=== PATIENT | female | born 1945 | race Caucasian/White ===

== ENCOUNTER 2017-05-16 09:22 | Inpatient (IN) | payer MEDICARE, OTHER ==
[~2017-05-16 09:22] MED LIST: Lactated Ringers 1,000 ML IV SCH; Lidocaine 1%/Sod Bicarbonate in NS 8.4% 1 ML Syringe PRN; Sodium Chloride 0.9% 10 ML Syringe FLUSH PRN
--- NOTE | 2017-05-16 11:08 | PCM.PREANE ---
Preanesthetic Assessment - Anesthesia/Transfusion/Family Hx Anesthesia History: Prior Anesthesia Without Reaction Family History of Anesthesia Reaction: No Transfusion History: No Prior Transfusion(s) Intubation History: Unknown - Review of Systems General: No Symptoms Pulmonary: Cough (dry cough on occasion) Cardiovascular: No Symptoms (History of HTN), Palpitations (on occasion) Gastrointestinal: No Symptoms (History of GERD) Neurological: No Symptoms (History of lower back pain/ currently asymptomatic, history of sciatica in the past.) Other: Reports: Thyroid Problems (Hypothyroid) - Physical Assessment NPO Status Date: 05/15/17 NPO Status Time: 21:00 Pulse: 88 O2 Sat by Pulse Oximetry: 98 Respiratory Rate: 16 Blood Pressure: 149/80 Temperature: 37.0 C Height: 1.75 m Weight: 74 kg ASA Class: 2 Mental Status: Alert & Oriented x3 Airway Class: Mallampati = 2 Dentition: Reports: Normal Dentition, Caries Thyro-Mental Finger Breadths: 3 Mouth Opening Finger Breadths: 3 ROM/Head Extension: Full Lungs: Clear to Auscultation, Normal Respiratory Effort Cardiovascular: Regular Rate, Regular Rhythm, No Murmurs - Lab Values: MRSA= negative Platelets= 320,000 All other lab values reviewed and noted and within acceptable ranges to proceed with scheduled procedure. - Imaging/EKG Impressions: Negative CXR noted. EKG: NSR with borderline left axis deviation, PVC's. - Allergies Allergies/Adverse Reactions: Allergies Allergy/AdvReac Type Severity Reaction Status Date / Time moxifloxacin [From Avelox] Allergy Cannot Verified 05/13/17 14:15 Remember - Anesthesia Plan Pre-Op Medication Ordered: None - Acknowledgements Anesthesia Type Planned: General Anesthesia, Spinal (with MAC) Pt an Appropriate Candidate for the Planned Anesthesia: Yes Alternatives and Risks of Anesthesia Discussed w Pt/Guardian: Yes Pt/Guardian Understands and Agrees with Anesthesia Plan: Yes PreAnesthesia Questionnaire HEENT History: Reports: Impaired Vision Cardiovascular History: Reports: High Cholesterol, Hypertension Respiratory History: Reports: None Gastrointestinal History: Reports: GERD Genitourinary History: Reports: None 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 Musculoskeletal History: Reports: Back Pain, Chronic, Osteoarthritis, Other ( See Below) Other Musculoskeletal History: low back pain Neurological History: Reports: None Psychiatric History: Reports: None Endocrine/Metabolic History: Reports: Hypothyroidism Hematologic History: Reports: None Immunologic History: Reports: None Oncologic (Cancer) History: Reports: None Dermatologic History: Reports: Other (See Below) Other Dermatologic History: actinic keratosis, R hand skin biopsy, neuroma exicsion of hand - Past Surgical History Head Surgeries/Procedures: Reports: None HEENT Surgical History: Reports: Tonsillectomy Cardiovascular Surgical History: Reports: None Respiratory Surgical History: Reports: None GI Surgical History: Reports: Colonoscopy, EGD Female Surgical History: Reports: Hysterectomy Male Surgical History: Reports: None Endocrine Surgical History: Reports: None Neurological Surgical History: Reports: None Musculoskeletal Surgical History: Reports: None Oncologic Surgical History: Reports: None - SUBSTANCE USE Smoking Status *Q: Never Smoker Recreational Drug Use History: No - HOME MEDS Home Medications: Home Meds Albuterol [Ventolin HFA] 1 - 2 puff INH Q4H PRN 05/13/17 [History] Calcium Citrate/Vitamin D3 [Citracal + D Maximum Caplet] 1 tab PO DAILY [History] Cholecalciferol (Vitamin D3) [Vitamin D3] 5,000 unit PO DAILY 05/13/17 [History] Hydrochlorothiazide [Hydrochlorothiazide] 12.5 mg PO DAILY 05/13/17 [History] Ibuprofen 200 - 600 mg PO Q6H 05/13/17 [History] Multivits-Min/Iron/FA/Lutein [Centrum Silver Women Tablet] 1 tab PO DAILY [History] Omeprazole Magnesium [Prilosec Otc] 20 mg PO BID 05/13/17 [History] - CURRENT (IN HOUSE) MEDS Current Meds: Current Medications Morphine Sulfate 8 mg/Epinephrine HCl 0.3 mg/Cefuroxime Sodium 750 mg/Ketorolac Tromethamine 30 mg/Sodium Chloride 27.9 ml 0 mg .XX ONETIME ONE Stop: 05/16/17 12:01 Lactated Ringer's (Ringers, Lactated) 1,000 mls @ 125 mls/hr IV ASDIRECTED TREY Stop: 05/16/17 23:00 Lidocaine/Sodium Bicarbonate (Buffered Lidocaine 1% In Ns 8.4%) 0.25 ml .XX ONETIME PRN PRN Reason: Prior to IV Start Stop: 05/16/17 18:00 Sodium Chloride (Saline Flush) 10 ml FLUSH ASDIRECTED PRN PRN Reason: Keep Vein Open Stop: 05/16/17 18:00
[2017-05-16] MEDS ORDERED: FLU Vacc TS 2017-18 (65yr UP)/PF 180 MCG/0.5 ML Syringe IM ONE (11:30)
[2017-05-16] MEDS ORDERED: Propofol 200 MG/20 ML SDV ONE ×3 (11:47→13:45)
[2017-05-16] MEDS ORDERED: Lidocaine 1% 4 ML ONE (11:47)
[2017-05-16] MEDS ORDERED: Midazolam 1 MG/ML 2 ML SDV ONE (11:48)
[2017-05-16] MEDS ORDERED: fentaNYL 100 MCG/2 ML SDV ONE (11:48)
[2017-05-16] MEDS ORDERED: ceFAZolin 1 GM Vial ONE (11:51)
[2017-05-16] MEDS ORDERED: Morphine PF 10 MG/10 ML SDV ONE (12:05)
[2017-05-16] MEDS ORDERED: Cyclobenzaprine 10 MG Tab PO PRN (12:13)
[2017-05-16] MEDS ORDERED: Magnesium Hydroxide 400 MG/5 ML Susp 30 ML Cup PO PRN (12:13)
[2017-05-16] MEDS ORDERED: Naloxone 0.4 MG/ML SDV IVPUSH PRN (12:13)
[2017-05-16] MEDS ORDERED: Morphine 2 MG/ML Syringe IVPUSH PRN (12:13)
[2017-05-16] MEDS ORDERED: Bisacodyl 5 MG Tab PO PRN (12:13)
[2017-05-16] MEDS ORDERED: Sennosides 8.6 MG Tab PO PRN (12:13)
[2017-05-16] MEDS ORDERED: Ondansetron 4 MG/2 ML SDV IVPUSH PRN ×2 (12:13→12:36)
[2017-05-16] MEDS ORDERED: Ondansetron 4 MG/2 ML SDV ONE (12:27)
[2017-05-16] MEDS ORDERED: diphenhydrAMINE 50 MG/ML SDV IVPUSH PRN (12:36)
[2017-05-16] MEDS: Iodine/Sodium Iodide 2% Tincture 30 ML Bottle ONE ×2 (12:52→13:05)
[2017-05-16] MEDS: Bupivacaine 0.25% 30 ML SDV ONE ×4 (12:53→13:40)
[2017-05-16] MEDS: ceFAZolin 1 GM Vial ONE ×2 (12:53→13:08)
[2017-05-16] MEDS: Triamcinolone Acetonide 40 MG/ML 1 ML MDV ONE ×2 (12:54→13:40)
[2017-05-16] MEDS: Vancomycin 1 GM SDV ONE ×2 (12:54→13:15)
[2017-05-16] MEDS: Morphine 8 MG, EPINEPHrine 0.3 MG, Cefuroxime 750 MG, Ketorolac 30 MG, Sodium Chloride ... ONE ×10 (12:56→13:13)
[2017-05-16] MEDS ORDERED: Dexamethasone 4 MG/ML 5 ML MDV ONE (13:47)
--- NOTE | 2017-05-16 13:57 | PCM.POSTAN ---
POST ANESTHESIA ASSESSMENT - MENTAL STATUS Mental Status: Alert, Oriented - VITAL SIGNS Pulse Rate: 91 SaO2: 98 Resp Rate: 15 Blood Pressure: 113/66 Temperature: 37.0 C - RESPIRATORY Respiratory Status: Respiratory Rate WNL, Airway Patent, O2 Saturation Stable - CARDIOVASCULAR CV Status: Pulse Rate WNL, Blood Pressure Stable - GASTROINTESTINAL GI Status: No Symptoms - PAIN Pain Score: 0 - POST OP HYDRATION Hydration Status: Adequate & Stable
[2017-05-16] MEDS ORDERED: Lactated Ringers 1,000 ML ONE (14:01)
[2017-05-16] MEDS ORDERED: Ketorolac 30 MG/ML SDV ONE (14:20)
--- NOTE | 2017-05-16 14:33 | CR ---
Right knee: AP and lateral views of the right knee were obtained. Comparison: Previous standing AP knee exam of 12/22/16. Knee prosthesis is seen. Components are aligned. Underlying bony structures are intact. Air noted within the joint as well as fluid compatible with the surgical procedure. Underlying bony structures are intact. Impression: 1. Fluid and air within the joint which is compatible with recent surgery. 2. No acute abnormality is seen. Diagnostic code #2
--- NOTE | 2017-05-16 14:56 | PCM.CONS ---
H&P History of Present Illness - General Date of Service: 05/16/17 Admit Problem/Dx: Admission Diagnosis/Problem Admission Diagnosis/Problem Osteoarthritis of knee Source of Information: Patient, Old Records, Provider, RN History Limitations: Reports: No Limitations - History of Present Illness Initial Comments - Free Text/Narative: Minna Gonzalez is a 71 yo female s/p right TKA and left knee cortisone injection with Dr. Marcus this morning. Hospitalist service is consulted for postoperative medical management. PMH includes hypothyroidism, HTN, GERD, HLD, Chronic back pain, Osteoarthritis. Thus far postoperatively she is resting comfortably, under good pain control. No nausea. No SOB, CP, palpiataitons. Right Knee Pain Score (Numeric/FACES): 0 - Related Data Allergies/Adverse Reactions: Allergies Allergy/AdvReac Type Severity Reaction Status Date / Time moxifloxacin [From Avelox] Allergy Cannot Verified 05/16/17 16:03 Remember Home Medications: Home Meds Albuterol [Ventolin HFA] 1 - 2 puff INH Q4H PRN 05/13/17 [History] Calcium Citrate/Vitamin D3 [Citracal + D Maximum Caplet] 1 tab PO DAILY [History] Cholecalciferol (Vitamin D3) [Vitamin D3] 2,000 unit PO DAILY 05/13/17 [History] Hydrochlorothiazide [Hydrochlorothiazide] 12.5 mg PO DAILY 05/13/17 [History] Ibuprofen 200 - 600 mg PO Q6H 05/13/17 [History] Multivits-Min/Iron/FA/Lutein [Centrum Silver Women Tablet] 1 tab PO DAILY [History] Omeprazole Magnesium [Prilosec Otc] 20 mg PO BID 05/13/17 [History] Levothyroxine 75 mcg PO ACBREAKFAST 05/16/17 [History] Pravastatin Sodium [Pravastatin (Pravachol)] 40 mg PO BEDTIME 05/16/17 [History] Past Medical History HEENT History: Reports: Impaired Vision Cardiovascular History: Reports: High Cholesterol, Hypertension Respiratory History: Reports: None Gastrointestinal History: Reports: GERD Genitourinary History: Reports: None 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 Musculoskeletal History: Reports: Back Pain, Chronic, Osteoarthritis, Other ( See Below) Other Musculoskeletal History: low back pain Neurological History: Reports: None Psychiatric History: Reports: None Endocrine/Metabolic History: Reports: Hypothyroidism Hematologic History: Reports: None Immunologic History: Reports: None Oncologic (Cancer) History: Reports: None Dermatologic History: Reports: Other (See Below) Other Dermatologic History: actinic keratosis, R hand skin biopsy, neuroma exicsion of hand - Past Surgical History Head Surgeries/Procedures: Reports: None HEENT Surgical History: Reports: Tonsillectomy Cardiovascular Surgical History: Reports: None Respiratory Surgical History: Reports: None GI Surgical History: Reports: Colonoscopy, EGD Female Surgical History: Reports: Hysterectomy Male Surgical History: Reports: None Endocrine Surgical History: Reports: None Neurological Surgical History: Reports: None Musculoskeletal Surgical History: Reports: None Oncologic Surgical History: Reports: None Social & Family History - Tobacco Use Smoking Status *Q: Never Smoker - Caffeine Use Caffeine Use: Reports: Coffee, Tea - Recreational Drug Use Recreational Drug Use: No H&P Review of Systems - Review of Systems: Review Of Systems: See Below General: Reports: No Symptoms HEENT: Reports: No Symptoms Pulmonary: Reports: No Symptoms Cardiovascular: Reports: No Symptoms Gastrointestinal: Reports: No Symptoms Genitourinary: Reports: No Symptoms Musculoskeletal: Reports: Muscle Stiffness (right leg ). Denies: Joint Pain, Joint Swelling, Muscle Pain Skin: Reports: No Symptoms Psychiatric: Reports: No Symptoms Neurological: Reports: Numbness (mild - right leg ), Difficulty Walking, Gait Disturbance. Denies: Confusion, Dizziness, Headache Hematologic/Lymphatic: Reports: No Symptoms Immunologic: Reports: No Symptoms Exam - Exam Exam: See Below - Vital Signs Vital Signs: Last Vital Signs Temp 98.1 F 05/16/17 14:35 Pulse 91 05/16/17 13:57 Resp 16 05/16/17 14:50 BP 119/65 05/16/17 14:35 Pulse Ox 97 05/16/17 14:50 Weight: 163 lb 2.273 oz - Exam Quality Assessment: Supplemental Oxygen, Urinary Catheter, DVT Prophylaxis General: Alert, Oriented, Cooperative HEENT: Conjunctiva Clear, EACs Clear, Hearing Intact, Mucosa Moist & [place], Nares Patent, Normal Nasal Septum, Posterior Pharynx Clear, TMs Clear, PERRLA Neck: Supple, Trachea Midline. No: JVD Lungs: Clear to Auscultation, Normal Respiratory Effort Cardiovascular: Regular Rate, Regular Rhythm GI/Abdominal Exam: Normal Bowel Sounds, Soft, Non-Tender, No Organomegaly, No Distention, No Abnormal Bruit, No Mass, Pelvis Stable (Female) Exam: Deferred Rectal (Female) Exam: Deferred Back Exam: Normal Inspection, Full Range of Motion, NT Extremities: Non-Tender, No Pedal Edema, Normal Capillary Refill, Limited Range of Motion, Other (Right knee in GREGORY bandage. Dressing dry and intact ) Peripheral Pulses: 0: Posterior Tibial (R) (Unable to palpate due to bandage ), Dorsalis Pedis (R) (Unable to palpate due to bandage ), 2+: Radial (L), Radial ( R), Posterior Tibial (L), Dorsalis Pedis (L) Skin: Warm, Dry, Intact Neurological: Cranial Nerves Intact (Grossly ) Neuro Extensive - Mental Status: Alert, Oriented x3, Normal Mood/Affect, Normal Cognition, Memory Intact Neuro Extensive - Motor, Sensory, Reflexes: CN II-XII Intact (Grossly ) Psychiatric: Alert, Normal Affect, Normal Mood Consult PN Assessment/Plan POD#: 0 Procedures: Procedures BONE IMAGING WHOLE BODY (02/28/17) MRI JNT OF LWR EXTRE W/O DYE (12/09/16) MRI LUMBAR SPINE W/O DYE (02/28/17) OFFICE/OUTPATIENT VISIT EST (12/22/16) X-RAY EXAM OF KNEE 1 OR 2 (12/22/16) X-RAY EXAM OF KNEES (12/22/16) (1) Hyperlipidemia SNOMED Code(s): 14710412 Code(s): E78.5 - HYPERLIPIDEMIA, UNSPECIFIED Priority: Low Current Visit : No Qualifiers: Hyperlipidemia type: unspecified Qualified Code(s): E78.5 - Hyperlipidemia , unspecified (2) Hypertension SNOMED Code(s): 03614340 Code(s): I10 - ESSENTIAL (PRIMARY) HYPERTENSION Priority: Medium Current Visit: Yes Qualifiers: Hypertension type: unspecified Qualified Code(s): I10 - Essential (primary ) hypertension (3) Hypothyroidism SNOMED Code(s): 99197111 Code(s): E03.9 - HYPOTHYROIDISM, UNSPECIFIED Priority: Medium Current Visit: Yes Qualifiers: Hypothyroidism type: unspecified Qualified Code(s): E03.9 - Hypothyroidism , unspecified (4) Osteoarthritis SNOMED Code(s): 822712089 Code(s): M19.90 - UNSPECIFIED OSTEOARTHRITIS, UNSPECIFIED SITE Priority: High Current Visit: Yes Qualifiers: Osteoarthritis location: knee Osteoarthritis type: primary Laterality: bilateral Qualified Code(s): M17.0 - Bilateral primary osteoarthritis of knee (5) Status post right knee replacement SNOMED Code(s): 828058125, 468870551 Code(s): Z96.651 - PRESENCE OF RIGHT ARTIFICIAL KNEE JOINT Priority: High Current Visit: Yes Problem List Initiated/Reviewed/Updated: Yes Plan: Acute: Post-Operative Care State - She is clinically stable - Continue to monitor for hemodynamic instability S/p Right Total Knee Arthroplasty with Left knee cortisone injection - Stable - DVT and Pain Management as per primary team Hx/o bilateral Knee Pain - Pain Management as per primary team Hx/o chronic back pain - Pain management as per primary team Hx/o HTN - Controlled - Last BP was 120/98 mmHg - PRN anti-hypertensive drug and continue home meds. Chronic: HLD GERD Hypothyroidism Osteoarthritis Plan: She is clinically stable Routine AM labs Continue home meds PT/OT consult IS q2 awake Thank you for the opportunity to participate in the management of this patient. Requesting Provider: Dr. Marcus Date Consult Requested: 05/16/17 Reason for Consult: Post-operative care Patient History Reviewed: Yes Admission H&P Reviewed: Yes Consult Result/Summary:: Clinically stable
[2017-05-16] MEDS ORDERED: Albuterol 6.7 GM Inhaler INH PRN (16:05)
[2017-05-16] MEDS: Docusate Sodium 100 MG Cap PO SCH (22:01)
[2017-05-16] MEDS: Famotidine 20 MG Tab PO SCH (22:01)
[2017-05-16] MEDS: ceFAZolin 2 GM in Premix Bag 1 BAG IV SCH (22:01)
[2017-05-16] MEDS: Acetaminophen/oxyCODONE 325-5 MG Tab PO PRN (22:06)
[2017-05-17] MEDS: ceFAZolin 2 GM in Premix Bag 1 BAG IV SCH ×2 (03:05→11:18)
[2017-05-17] MEDS: Famotidine 20 MG Tab PO SCH ×2 (05:56→09:15)
[2017-05-17] MEDS: Acetaminophen/oxyCODONE 325-5 MG Tab PO PRN ×2 (05:56→13:04)
[2017-05-17] MEDS ORDERED: Levothyroxine 75 MCG Tab PO SCH (06:00)
--- NOTE | 2017-05-17 08:50 | PCM.CONSN ---
- General Info Date of Service: 05/17/17 Admission Dx/Problem (Free Text): Admission Diagnosis/Problem Admission Diagnosis/Problem Osteoarthritis of knee POD #[address] Marcus Doing well. Pain controlled. No n/v Working with PT Plans for DC home today. Functional Status: Reports: Pain Controlled, Tolerating Diet, Ambulating, Urinating, Incentive Spirometry. Denies: New Symptoms - Review of Systems General: Reports: No Symptoms HEENT: Reports: No Symptoms Pulmonary: Reports: No Symptoms Cardiovascular: Reports: No Symptoms Gastrointestinal: Reports: No Symptoms Genitourinary: Reports: No Symptoms Musculoskeletal: Reports: Leg Pain Skin: Reports: No Symptoms Neurological: Reports: No Symptoms Psychiatric: Reports: No Symptoms - Patient Data Vitals - Most Recent: Last Vital Signs Temp 97.5 F 05/17/17 07:33 Pulse 62 05/17/17 07:33 Resp 19 05/17/17 07:33 BP 108/70 05/17/17 07:33 Pulse Ox 96 05/17/17 07:33 Weight - Most Recent: 171 lb I&O - Last 24 Hours: Intake & Output 05/16/17 05/17/17 05/17/17 22:59 06:59 14:59 Intake Total 240 837 Output Total 400 350 Balance -160 487 Lab Results Last 24 Hours: Laboratory Results - last 24 hr 05/17/17 05/17/17 Range/Units 06:05 06:05 WBC 18.95 H (3.98-10.04) K/mm3 RBC 4.21 (3.98-5.22) M/mm3 Hgb 12.5 (11.2-15.7) gm/L Hct 37.0 (34.1-44.9) % MCV 87.9 (79.4-94.8) fl MCH 29.7 (25.6-32.2) pg MCHC 33.8 (32.2-35.5) g/dl RDW Std Deviation 42.0 (36.4-46.3) fL Plt Count 302 (182-369) K/mm3 MPV 10.7 (9.4-12.3) fl Neut % (Auto) 87.4 H (34.0-71.1) % Lymph % (Auto) 6.7 L (19.3-51.7) % [place] % (Auto) 5.5 (4.7-12.5) % Eos % (Auto) 0 L (0.7-5.8) Baso % (Auto) 0.1 (0.1-1.2) % Neut # (Auto) 16.58 H (1.56-6.13) K/mm3 Lymph # (Auto) 1.27 (1.18-3.74) K/mm3 [place] # (Auto) 1.04 H (0.24-0.36) K/mm3 Eos # (Auto) 0.00 L (0.04-0.36) K/mm3 Baso # (Auto) 0.01 (0.01-0.08) K/mm3 Manual Slide Review Abnormal smear Sodium 139 (136-145) mEq/L Potassium 4.1 (3.5-5.1) mEq/L Chloride 104 (98-107) mEq/L Carbon Dioxide 25 (21-32) mEq/L Anion Gap 14.1 (5-15) BUN 20 H (7-18) mg/dL Creatinine 1.0 (0.55-1.02) mg/dL Est Cr Clr Drug Dosing 54.71 mL/min Estimated GFR (MDRD) 55 (>60) mL/min BUN/Creatinine Ratio 20.0 H (14-18) Glucose 140 H (80-115) mg/dL Calcium 9.0 (8.5-10.1) mg/dL Total Bilirubin 0.3 (0.2-1.0) mg/dL AST 17 (15-37) U/L ALT 27 (14-59) U/L Alkaline Phosphatase 110 (46-116) U/L Total Protein 6.2 L (6.4-8.2) g/dl Albumin 3.2 L (3.4-5.0) g/dl Globulin 3.0 gm/dL Albumin/Globulin Ratio 1.1 (1-2) Med Orders - Current: Current Medications Albuterol (Proventil Hfa) 1 - 2 gm INH Q4H PRN PRN Reason: Shortness of Breath Aspirin (Ecotrin) 325 mg PO BID TREY Bisacodyl (Dulcolax) 5 mg PO DAILY PRN PRN Reason: Constipation Cyclobenzaprine HCl (Flexeril) 10 mg PO TID PRN PRN Reason: Spasms Diphenhydramine HCl (Benadryl) 25 mg IVPUSH Q6H PRN PRN Reason: Pruritis Docusate Sodium (Colace) 100 mg PO BID [facility] Last Admin: 05/16/17 22:01 Dose: 100 mg Famotidine (Pepcid) 20 mg PO BID [facility] Last Admin: 05/17/17 05:56 Dose: 20 mg Hydrochlorothiazide (Hydrochlorothiazide) 12.5 mg PO DAILY [facility] Cefazolin Sodium/Dextrose 2 gm (/ Premix) 50 mls @ 100 mls/hr IV Q8H [facility] Stop: 05/17/17 12:29 Last Admin: 05/17/17 03:05 Dose: 100 mls/hr Levothyroxine Sodium (Levothyroxine) 75 mcg PO ACBREAKFAST [facility] Last Admin: 05/17/17 05:55 Dose: 75 mcg Magnesium Hydroxide (Milk Of Magnesia) 30 ml PO BID PRN PRN Reason: Constipation Morphine Sulfate (Morphine) 2 mg IVPUSH Q2H PRN PRN Reason: Breakthrough Pain Naloxone HCl (Narcan) 0.1 mg IVPUSH Q5M PRN PRN Reason: Oversedation Ondansetron HCl (Zofran) 4 mg IVPUSH Q6H PRN PRN Reason: Nausea/Vomiting Oxycodone/Acetaminophen (Percocet 325-5 Mg) 1 - 2 tab PO Q4H PRN PRN Reason: Pain Last Admin: 05/17/17 05:56 Dose: 2 tab Senna (Senna) 8.6 mg PO BID PRN PRN Reason: Constipation Discontinued Medications Bupivacaine HCl (Marcaine 0.25%) Confirm Administered Dose 30 ml .ROUTE .STK- MED ONE Stop: 05/16/17 11:01 Last Admin: 05/16/17 13:40 Dose: 4 ml Cefazolin Sodium (Ancef) Confirm Administered Dose 2 gm .ROUTE .STK-MED ONE Stop: 05/16/17 11:01 Last Admin: 05/16/17 13:08 Dose: 2 gm Cefazolin Sodium (Ancef) Confirm Administered Dose 2 gm .ROUTE .STK-MED ONE Stop: 05/16/17 11:52 Morphine Sulfate 8 mg/Epinephrine HCl 0.3 mg/Cefuroxime Sodium 750 mg/Ketorolac Tromethamine 30 mg/Sodium Chloride 27.9 ml 0 mg .XX ONETIME ONE Stop: 05/16/17 12:01 Last Admin: 05/16/17 13:13 Dose: 788.3 mg Dexamethasone (Dexamethasone) Confirm Administered Dose 20 mg .ROUTE .STK-MED ONE Stop: 05/16/17 13:48 Fentanyl (Sublimaze) Confirm Administered Dose 100 mcg .ROUTE .STK-MED ONE Stop: 05/16/17 11:49 Lactated Ringer's (Ringers, Lactated) 1,000 mls @ 125 mls/hr IV ASDIRECTED TREY Stop: 05/16/17 23:00 Last Admin: 05/16/17 11:10 Dose: 125 mls/hr Lidocaine HCl (Xylocaine-Mpf 1%) Confirm Administered Dose 4 mls @ as directed .ROUTE .STK-MED ONE Stop: 05/16/17 11:48 Lactated Ringer's (Ringers, Lactated) Confirm Administered Dose 1,000 mls @ as directed .ROUTE .STK-MED ONE Stop: 05/16/17 14:02 Iodine (Iodine 2% Mild Tincture) Confirm Administered Dose 30 ml .ROUTE .STK- MED ONE Stop: 05/16/17 11:01 Last Admin: 05/16/17 13:05 Dose: 18 ml Ketorolac Tromethamine (Toradol) Confirm Administered Dose 30 mg .ROUTE .STK- MED ONE Stop: 05/16/17 14:21 Lidocaine/Sodium Bicarbonate (Buffered Lidocaine 1% In Ns 8.4%) 0.25 ml .XX ONETIME PRN PRN Reason: Prior to IV Start Stop: 05/16/17 18:00 Last Admin: 05/16/17 11:09 Dose: 0.25 ml Midazolam HCl (Versed 1 Mg/Ml) Confirm Administered Dose 2 mg .ROUTE .STK-MED ONE Stop: 05/16/17 11:49 Morphine Sulfate (Duramorph Pf) Confirm Administered Dose 10 mg .ROUTE .STK-MED ONE Stop: 05/16/17 12:06 Ondansetron HCl (Zofran) Confirm Administered Dose 4 mg .ROUTE .STK-MED ONE Stop: 05/16/17 12:28 Ondansetron HCl (Zofran) 4 mg IVPUSH ONETIME PRN PRN Reason: Nausea/Vomiting Stop: 05/16/17 18:00 Propofol (Diprivan 20 Ml) Confirm Administered Dose 400 mg .ROUTE .STK-MED ONE Stop: 05/16/17 11:48 Propofol (Diprivan 20 Ml) Confirm Administered Dose 200 mg .ROUTE .STK-MED ONE Stop: 05/16/17 12:58 Propofol (Diprivan 20 Ml) Confirm Administered Dose 200 mg .ROUTE .STK-MED ONE Stop: 05/16/17 13:46 Sodium Chloride (Saline Flush) 10 ml FLUSH ASDIRECTED PRN PRN Reason: Keep Vein Open Stop: 05/16/17 18:00 Tranexamic Acid (Cyklokapron) Confirm Administered Dose 1,000 mg .ROUTE .STK- MED ONE Stop: 05/16/17 11:00 Last Admin: 05/16/17 13:24 Dose: 1,000 mg Triamcinolone Acetonide (Kenalog-40) Confirm Administered Dose 40 mg .ROUTE .STK -MED ONE Stop: 05/16/17 11:01 Last Admin: 05/16/17 13:40 Dose: 40 mg Vancomycin HCl (Vancomycin) Confirm Administered Dose 1 gm .ROUTE .STK-MED ONE Stop: 05/16/17 11:00 Last Admin: 05/16/17 13:15 Dose: 1 gm - Exam Quality Assessment: DVT Prophylaxis General: Alert, Oriented, Cooperative, No Acute Distress HEENT: Pupils Equal, EOMI, Mucous Membr. Moist/[place] Neck: Supple Lungs: Clear to Auscultation, Normal Respiratory Effort, Decreased Breath Sounds (bases) Cardiovascular: Regular Rate, Regular Rhythm GI/Abdominal Exam: Normal Bowel Sounds, Soft, Non-Tender (Female) Exam: Deferred Extremities: Other (teds/SCD's/Ice) Peripheral Pulses: 1+: Dorsalis Pedis (L), Dorsalis Pedis (R) Neurological: No New Focal Deficit Psy/Mental Status: Alert, Normal Affect, Normal Mood Consult PN Assessment/Plan POD#: 1 Procedures: Procedures BONE IMAGING WHOLE BODY (02/28/17) MRI JNT OF LWR EXTRE W/O DYE (12/09/16) MRI LUMBAR SPINE W/O DYE (02/28/17) OFFICE/OUTPATIENT VISIT EST (12/22/16) X-RAY EXAM OF KNEE 1 OR 2 (12/22/16) X-RAY EXAM OF KNEES (12/22/16) (1) Status post right knee replacement SNOMED Code(s): 177995107, 153665262 Code(s): Z96.651 - PRESENCE OF RIGHT ARTIFICIAL KNEE JOINT Priority: High Current Visit: Yes (2) Osteoarthritis SNOMED Code(s): 607501143 Code(s): M19.90 - UNSPECIFIED OSTEOARTHRITIS, UNSPECIFIED SITE Priority: High Current Visit: Yes Qualifiers: Osteoarthritis location: knee Osteoarthritis type: primary Laterality: bilateral Qualified Code(s): M17.0 - Bilateral primary osteoarthritis of knee (3) Hypertension SNOMED Code(s): 56837536 Code(s): I10 - ESSENTIAL (PRIMARY) HYPERTENSION Priority: Medium Current Visit: Yes Qualifiers: Hypertension type: unspecified Qualified Code(s): I10 - Essential (primary ) hypertension (4) Hypothyroidism SNOMED Code(s): 81614638 Code(s): E03.9 - HYPOTHYROIDISM, UNSPECIFIED Priority: Medium Current Visit: Yes Qualifiers: Hypothyroidism type: unspecified Qualified Code(s): E03.9 - Hypothyroidism , unspecified (5) Hyperlipidemia SNOMED Code(s): 38765442 Code(s): E78.5 - HYPERLIPIDEMIA, UNSPECIFIED Priority: Low Current Visit : No Qualifiers: Hyperlipidemia type: unspecified Qualified Code(s): E78.5 - Hyperlipidemia , unspecified Problem List Initiated/Reviewed/Updated: Yes Plan: I/P: S/P Rt TKA- POD #1, Dr. Marcus -Pain management and DVT prophylax per primary team/Ortho -PT/OT -RT/IS -Hgb 12.5 Chronic: HTN- stable HLD GERD Hypothyroidism Chronic LBP Other: GI prophylax CM/SW for assist with DC planning. -Medically stable. Labs and VSS. OK from Hospitalist standpoint for DC home today. Patient is full code status.
[2017-05-17] MEDS ORDERED: Hydrochlorothiazide 12.5 MG Cap PO SCH (09:00)
[2017-05-17] MEDS ORDERED: Aspirin 325 MG Tab.EC PO SCH (09:00)
[2017-05-17] MEDS: Docusate Sodium 100 MG Cap PO SCH (09:11)
--- NOTE | 2017-05-17 10:35 | PCM48HPAN ---
Post Anesthesia Note - EVALUATION WITHIN 48HRS OF ANESTHETIC Vital Signs in Normal Range: Yes Patient Participated in Evaluation: Yes Respiratory Function Stable: Yes Airway Patent: Yes Cardiovascular Function Stable: Yes Hydration Status Stable: Yes Pain Control Satisfactory: Yes Nausea and Vomiting Control Satisfactory: Yes Mental Status Recovered: Yes
[2017-05-17 13:08] VITALS: BP 123/82
--- NOTE | 2017-05-18 07:53 | PCM.DCSUM1 ---
Discharge Summary - Hospital Course Brief History: Minna is a 71 yo female who underwent right TKA with left knee cortisone injection with Dr. Marcus on 05-16-2017. The procedure was completed under spinal anesthesia. The pt tolerated the procedure well and was admitted to the Medical-Surgical Unit. The pt's hospital course was uneventful. The pt' s hemoglobin on POD#1 was 12.5. The pt participated in P.T. and O.T. and progressed well. The pt's surgical dressing remained clean and dry. On POD#1, 325mg ASA BID was initiated for VTE prophylaxis. SCDs and TEDs were also used. On POD#1, the pt was deemed appropriate for discharge to home with her . - Discharge Data Discharge Date: 05/17/17 Discharge Disposition: Home, Self-Care 01 Condition: Good - Patient Summary/Data Consults: Consultations 05/16/17 12:13 Consult to Physician [CONS] Stat OT Evaluation and Treatment [CONS] Stat PT Evaluation and Treatment [CONS] Stat - Patient Instructions Diet: Usual Diet as Tolerated Activity: Apply Ice, As Tolerated, Elevate Extremity, Full Weight Bearing Driving: Do Not Drive Showering/Bathing: May Shower Wound/Incision Care: Keep Operative Site/Wound Site Clean and Dry, Do NOT Change Dressing Notify Provider of: Fever, Increased Pain, Swelling and Redness, Drainage, Nausea and/or Vomiting Other/Special Instructions: Please get up and moving around every hour while awake. This helps to prevent blood clots. Please use your walker and have help as needed. Take a 325mg ASPIRIN TWICE DAILY. This also helps to prevent blood clots. The aspirin is being used for blood clot prevention and not for pain management, so please do not miss a dose of the medication. Do the exercises you were taught in the Hospital. Schedule for P.T. Use the pain medication as needed. The medication may cause drowsiness and constipation. Contact your primary care provider for instructions if you are constipated. You may use a stool softener like docusate sodium or Colace 100mg twice daily and/or a laxative like Miralax daily for constipation. Use the ice machine often. Elevate the limb to decrease swelling. Keep the Mepilex dressing in place until follow-up at the Clinic. Notify the Clinic if the dressing is saturated. Wear the CHUY hose during the day and you may remove these at night. Eat a diet high in protein as this well help with healing. Schedule an appointment with your primary care provider for 'routine post-op care'. Call the Clinic with questions or concerns - [phone]. - Discharge Plan Prescriptions/Med Rec: Acetaminophen/oxyCODONE [Percocet 325-5 MG] 1 - 2 tab PO Q4H PRN #60 tablet PRN Reason: Pain Aspirin [Aspirin EC] 325 mg PO BID #56 tablet. Cyclobenzaprine [Flexeril] 10 mg PO Q8H PRN #40 tablet PRN Reason: Spasms Home Medications: Home Meds Albuterol [Ventolin HFA] 1 - 2 puff INH Q4H PRN 05/13/17 [History] Calcium Citrate/Vitamin D3 [Citracal + D Maximum Caplet] 1 tab PO DAILY [History] Cholecalciferol (Vitamin D3) [Vitamin D3] 2,000 unit PO DAILY 05/13/17 [History] Hydrochlorothiazide 12.5 mg PO DAILY 05/13/17 [History] Multivits-Min/Iron/FA/Lutein [Centrum Silver Women Tablet] 1 tab PO DAILY [History] Omeprazole Magnesium [Prilosec Otc] 20 mg PO BID 05/13/17 [History] Levothyroxine 75 mcg PO ACBREAKFAST 05/16/17 [History] Pravastatin Sodium [Pravastatin (Pravachol)] 40 mg PO BEDTIME 05/16/17 [History] Acetaminophen/oxyCODONE [Percocet 325-5 MG] 1 - 2 tab PO Q4H PRN #60 tablet 10/29 [Rx] Aspirin [Aspirin EC] 325 mg PO BID #56 tablet. 05/17/17 [Rx] Cyclobenzaprine [Flexeril] 10 mg PO Q8H PRN #40 tablet 05/17/17 [Rx] Docusate Sodium [Colace] 100 mg PO BID #60 cap 05/17/17 [Rx] Patient Handouts: Total Knee Replacement, Care After, [id number], Total Knee Replacement, [id number], Aspirin, ASA oral tablets, Knee Rehabilitation Guidelines Following Surgery Referrals: Maegan Jensen PA-C [Physician Public Health Officer] - (Please see Maegan Jensen on Tuesday05/24/17 at 8:00 AM and on Tuesday05/31/17 at 2:45 PM.) Albert Monroe MD [Primary Care Provider] - - Patient Data Vitals - Most Recent: Last Vital Signs Temp 98.4 F 05/17/17 12:59 Pulse 95 05/17/17 12:59 Resp 18 05/17/17 12:59 BP 123/82 05/17/17 12:59 Pulse Ox 99 05/17/17 12:59 Weight - Most Recent: 171 lb Med Orders - Current: Current Medications Discontinued Medications Albuterol (Proventil Hfa) 1 - 2 gm INH Q4H PRN PRN Reason: Shortness of Breath Aspirin (Ecotrin) 325 mg PO BID [facility] Last Admin: 05/17/17 09:11 Dose: 325 mg Bisacodyl (Dulcolax) 5 mg PO DAILY PRN PRN Reason: Constipation Bupivacaine HCl (Marcaine 0.25%) Confirm Administered Dose 30 ml .ROUTE .STK- MED ONE Stop: 05/16/17 11:01 Last Admin: 05/16/17 13:40 Dose: 4 ml Cefazolin Sodium (Ancef) Confirm Administered Dose 2 gm .ROUTE .STK-MED ONE Stop: 05/16/17 11:01 Last Admin: 05/16/17 13:08 Dose: 2 gm Cefazolin Sodium (Ancef) Confirm Administered Dose 2 gm .ROUTE .STK-MED ONE Stop: 05/16/17 11:52 Morphine Sulfate 8 mg/Epinephrine HCl 0.3 mg/Cefuroxime Sodium 750 mg/Ketorolac Tromethamine 30 mg/Sodium Chloride 27.9 ml 0 mg .XX ONETIME ONE Stop: 05/16/17 12:01 Last Admin: 05/16/17 13:13 Dose: 788.3 mg Cyclobenzaprine HCl (Flexeril) 10 mg PO TID PRN PRN Reason: Spasms Dexamethasone (Dexamethasone) Confirm Administered Dose 20 mg .ROUTE .STK-MED ONE Stop: 05/16/17 13:48 Diphenhydramine HCl (Benadryl) 25 mg IVPUSH Q6H PRN PRN Reason: Pruritis Docusate Sodium (Colace) 100 mg PO BID [facility] Last Admin: 05/17/17 09:11 Dose: 100 mg Famotidine (Pepcid) 20 mg PO BID [facility] Last Admin: 05/17/17 09:15 Dose: Not Given Fentanyl (Sublimaze) Confirm Administered Dose 100 mcg .ROUTE .STK-MED ONE Stop: 05/16/17 11:49 Hydrochlorothiazide (Hydrochlorothiazide) 12.5 mg PO DAILY [facility] Last Admin: 05/17/17 09:10 Dose: 12.5 mg Lactated Ringer's (Ringers, Lactated) 1,000 mls @ 125 mls/hr IV ASDIRECTED [facility] Stop: 05/16/17 23:00 Last Admin: 05/16/17 11:10 Dose: 125 mls/hr Lidocaine HCl (Xylocaine-Mpf 1%) Confirm Administered Dose 4 mls @ as directed .ROUTE .STK-MED ONE Stop: 05/16/17 11:48 Cefazolin Sodium/Dextrose 2 gm (/ Premix) 50 mls @ 100 mls/hr IV Q8H [facility] Stop: 05/17/17 12:29 Last Admin: 05/17/17 11:18 Dose: 100 mls/hr Lactated Ringer's (Ringers, Lactated) Confirm Administered Dose 1,000 mls @ as directed .ROUTE .STK-MED ONE Stop: 05/16/17 14:02 Iodine (Iodine 2% Mild Tincture) Confirm Administered Dose 30 ml .ROUTE .STK- MED ONE Stop: 05/16/17 11:01 Last Admin: 05/16/17 13:05 Dose: 18 ml Ketorolac Tromethamine (Toradol) Confirm Administered Dose 30 mg .ROUTE .STK- MED ONE Stop: 05/16/17 14:21 Levothyroxine Sodium (Levothyroxine) 75 mcg PO ACBREAKFAST [facility] Last Admin: 05/17/17 05:55 Dose: 75 mcg Lidocaine/Sodium Bicarbonate (Buffered Lidocaine 1% In Ns 8.4%) 0.25 ml .XX ONETIME PRN PRN Reason: Prior to IV Start Stop: 05/16/17 18:00 Last Admin: 05/16/17 11:09 Dose: 0.25 ml Magnesium Hydroxide (Milk Of Magnesia) 30 ml PO BID PRN PRN Reason: Constipation Midazolam HCl (Versed 1 Mg/Ml) Confirm Administered Dose 2 mg .ROUTE .STK-MED ONE Stop: 05/16/17 11:49 Morphine Sulfate (Duramorph Pf) Confirm Administered Dose 10 mg .ROUTE .STK-MED ONE Stop: 05/16/17 12:06 Morphine Sulfate (Morphine) 2 mg IVPUSH Q2H PRN PRN Reason: Breakthrough Pain Naloxone HCl (Narcan) 0.1 mg IVPUSH Q5M PRN PRN Reason: Oversedation Ondansetron HCl (Zofran) Confirm Administered Dose 4 mg .ROUTE .STK-MED ONE Stop: 05/16/17 12:28 Ondansetron HCl (Zofran) 4 mg IVPUSH Q6H PRN PRN Reason: Nausea/Vomiting Ondansetron HCl (Zofran) 4 mg IVPUSH ONETIME PRN PRN Reason: Nausea/Vomiting Stop: 05/16/17 18:00 Oxycodone/Acetaminophen (Percocet 325-5 Mg) 1 - 2 tab PO Q4H PRN PRN Reason: Pain Last Admin: 05/17/17 13:04 Dose: 2 tab Propofol (Diprivan 20 Ml) Confirm Administered Dose 400 mg .ROUTE .STK-MED ONE Stop: 05/16/17 11:48 Propofol (Diprivan 20 Ml) Confirm Administered Dose 200 mg .ROUTE .STK-MED ONE Stop: 05/16/17 12:58 Propofol (Diprivan 20 Ml) Confirm Administered Dose 200 mg .ROUTE .STK-MED ONE Stop: 05/16/17 13:46 Senna (Senna) 8.6 mg PO BID PRN PRN Reason: Constipation Sodium Chloride (Saline Flush) 10 ml FLUSH ASDIRECTED PRN PRN Reason: Keep Vein Open Stop: 05/16/17 18:00 Tranexamic Acid (Cyklokapron) Confirm Administered Dose 1,000 mg .ROUTE .STK- MED ONE Stop: 05/16/17 11:00 Last Admin: 05/16/17 13:24 Dose: 1,000 mg Triamcinolone Acetonide (Kenalog-40) Confirm Administered Dose 40 mg .ROUTE .STK -MED ONE Stop: 05/16/17 11:01 Last Admin: 05/16/17 13:40 Dose: 40 mg Vancomycin HCl (Vancomycin) Confirm Administered Dose 1 gm .ROUTE .STK-MED ONE Stop: 05/16/17 11:00 Last Admin: 05/16/17 13:15 Dose: 1 gm *Q Meaningful Use (DIS) - VTE *Q VTE Criteria *Q: - Stroke *Q Stroke Criteria *Q: - AMI *Q AMI Criteria *Q:
--- NOTE | 2017-05-18 07:55 | PCM.SURGPN ---
- General Info Date of Service: 05/17/17 POD#: 1 Functional Status: Reports: Pain Controlled, Tolerating Diet, Ambulating, Urinating, Incentive Spirometry - Review of Systems Musculoskeletal: Reports: Other (The pt met inpatient therapy goals. She feels prepared for discharge to home.) - Patient Data Vitals - Most Recent: Last Vital Signs Temp 98.4 F 05/17/17 12:59 Pulse 95 05/17/17 12:59 Resp 18 05/17/17 12:59 BP 123/82 05/17/17 12:59 Pulse Ox 99 05/17/17 12:59 Weight - Most Recent: 171 lb Med Orders - Current: Current Medications Discontinued Medications Albuterol (Proventil Hfa) 1 - 2 gm INH Q4H PRN PRN Reason: Shortness of Breath Aspirin (Ecotrin) 325 mg PO BID [facility] Last Admin: 05/17/17 09:11 Dose: 325 mg Bisacodyl (Dulcolax) 5 mg PO DAILY PRN PRN Reason: Constipation Bupivacaine HCl (Marcaine 0.25%) Confirm Administered Dose 30 ml .ROUTE .STK- MED ONE Stop: 05/16/17 11:01 Last Admin: 05/16/17 13:40 Dose: 4 ml Cefazolin Sodium (Ancef) Confirm Administered Dose 2 gm .ROUTE .STK-MED ONE Stop: 05/16/17 11:01 Last Admin: 05/16/17 13:08 Dose: 2 gm Cefazolin Sodium (Ancef) Confirm Administered Dose 2 gm .ROUTE .STK-MED ONE Stop: 05/16/17 11:52 Morphine Sulfate 8 mg/Epinephrine HCl 0.3 mg/Cefuroxime Sodium 750 mg/Ketorolac Tromethamine 30 mg/Sodium Chloride 27.9 ml 0 mg .XX ONETIME ONE Stop: 05/16/17 12:01 Last Admin: 05/16/17 13:13 Dose: 788.3 mg Cyclobenzaprine HCl (Flexeril) 10 mg PO TID PRN PRN Reason: Spasms Dexamethasone (Dexamethasone) Confirm Administered Dose 20 mg .ROUTE .STK-MED ONE Stop: 05/16/17 13:48 Diphenhydramine HCl (Benadryl) 25 mg IVPUSH Q6H PRN PRN Reason: Pruritis Docusate Sodium (Colace) 100 mg PO BID [facility] Last Admin: 05/17/17 09:11 Dose: 100 mg Famotidine (Pepcid) 20 mg PO BID [facility] Last Admin: 05/17/17 09:15 Dose: Not Given Fentanyl (Sublimaze) Confirm Administered Dose 100 mcg .ROUTE .STK-MED ONE Stop: 05/16/17 11:49 Hydrochlorothiazide (Hydrochlorothiazide) 12.5 mg PO DAILY [facility] Last Admin: 05/17/17 09:10 Dose: 12.5 mg Lactated Ringer's (Ringers, Lactated) 1,000 mls @ 125 mls/hr IV ASDIRECTED [facility] Stop: 05/16/17 23:00 Last Admin: 05/16/17 11:10 Dose: 125 mls/hr Lidocaine HCl (Xylocaine-Mpf 1%) Confirm Administered Dose 4 mls @ as directed .ROUTE .STK-MED ONE Stop: 05/16/17 11:48 Cefazolin Sodium/Dextrose 2 gm (/ Premix) 50 mls @ 100 mls/hr IV Q8H [facility] Stop: 05/17/17 12:29 Last Admin: 05/17/17 11:18 Dose: 100 mls/hr Lactated Ringer's (Ringers, Lactated) Confirm Administered Dose 1,000 mls @ as directed .ROUTE .STK-MED ONE Stop: 05/16/17 14:02 Iodine (Iodine 2% Mild Tincture) Confirm Administered Dose 30 ml .ROUTE .STK- MED ONE Stop: 05/16/17 11:01 Last Admin: 05/16/17 13:05 Dose: 18 ml Ketorolac Tromethamine (Toradol) Confirm Administered Dose 30 mg .ROUTE .STK- MED ONE Stop: 05/16/17 14:21 Levothyroxine Sodium (Levothyroxine) 75 mcg PO ACBREAKFAST [facility] Last Admin: 05/17/17 05:55 Dose: 75 mcg Lidocaine/Sodium Bicarbonate (Buffered Lidocaine 1% In Ns 8.4%) 0.25 ml .XX ONETIME PRN PRN Reason: Prior to IV Start Stop: 05/16/17 18:00 Last Admin: 05/16/17 11:09 Dose: 0.25 ml Magnesium Hydroxide (Milk Of Magnesia) 30 ml PO BID PRN PRN Reason: Constipation Midazolam HCl (Versed 1 Mg/Ml) Confirm Administered Dose 2 mg .ROUTE .STK-MED ONE Stop: 05/16/17 11:49 Morphine Sulfate (Duramorph Pf) Confirm Administered Dose 10 mg .ROUTE .STK-MED ONE Stop: 05/16/17 12:06 Morphine Sulfate (Morphine) 2 mg IVPUSH Q2H PRN PRN Reason: Breakthrough Pain Naloxone HCl (Narcan) 0.1 mg IVPUSH Q5M PRN PRN Reason: Oversedation Ondansetron HCl (Zofran) Confirm Administered Dose 4 mg .ROUTE .STK-MED ONE Stop: 05/16/17 12:28 Ondansetron HCl (Zofran) 4 mg IVPUSH Q6H PRN PRN Reason: Nausea/Vomiting Ondansetron HCl (Zofran) 4 mg IVPUSH ONETIME PRN PRN Reason: Nausea/Vomiting Stop: 05/16/17 18:00 Oxycodone/Acetaminophen (Percocet 325-5 Mg) 1 - 2 tab PO Q4H PRN PRN Reason: Pain Last Admin: 05/17/17 13:04 Dose: 2 tab Propofol (Diprivan 20 Ml) Confirm Administered Dose 400 mg .ROUTE .STK-MED ONE Stop: 05/16/17 11:48 Propofol (Diprivan 20 Ml) Confirm Administered Dose 200 mg .ROUTE .STK-MED ONE Stop: 05/16/17 12:58 Propofol (Diprivan 20 Ml) Confirm Administered Dose 200 mg .ROUTE .STK-MED ONE Stop: 05/16/17 13:46 Senna (Senna) 8.6 mg PO BID PRN PRN Reason: Constipation Sodium Chloride (Saline Flush) 10 ml FLUSH ASDIRECTED PRN PRN Reason: Keep Vein Open Stop: 05/16/17 18:00 Tranexamic Acid (Cyklokapron) Confirm Administered Dose 1,000 mg .ROUTE .STK- MED ONE Stop: 05/16/17 11:00 Last Admin: 05/16/17 13:24 Dose: 1,000 mg Triamcinolone Acetonide (Kenalog-40) Confirm Administered Dose 40 mg .ROUTE .STK -MED ONE Stop: 05/16/17 11:01 Last Admin: 05/16/17 13:40 Dose: 40 mg Vancomycin HCl (Vancomycin) Confirm Administered Dose 1 gm .ROUTE .STK-MED ONE Stop: 05/16/17 11:00 Last Admin: 05/16/17 13:15 Dose: 1 gm - Exam Wound/Incisions: Dressing Dry and Intact General: Alert, Cooperative, No Acute Distress Lungs: Normal Respiratory Effort Extremities: Other (Near independent SLR RLE. Fredy's negative for RLE. NVS intact for RLE.) - Problem List Review Problem List Initiated/Reviewed/Updated: Yes - My Orders Last 24 Hours: Active Orders 24 hr Category Date Time Status Ready for Discharge [RC] PER UNIT ROUTINE Care 05/17/17 12:46 Active - Assessment Assessment (Free Text/Narrative):: POD#1 - right TKA with left knee cortisone injection - Plan Plan (Free Text/Narrative):: 1. Hgb 12.5. 2. ASA BID. Frequent mobility, TEDs. 3. Percocet and Flexeril for pain management. 4. Outpatient P.T. The pt's case was discussed with Dr. Marcus.
--- NOTE | 2017-05-20 09:17 | PCM.OPNOTE ---
- General Post-Op/Procedure Note Date of Surgery/Procedure: 05/16/17 Operative Procedure(s): right total knee arthroplasty with left knee corticosteroid injection Pre Op Diagnosis: bilateral knee osteoarthrosis Post-Op Diagnosis: Same Anesthesia Technique: Local, MAC, Spinal Primary Surgeon: Ander Marcus Anesthesia Provider: Veronique Hollingsworth Pattern Puncher: Maegan Jensen Pattern Puncher: Kirstie Patel EBL in mLs: 250 Complications: None Condition: Good
--- NOTE | 2017-05-20 10:33 | OR ---
DATE OF OPERATION: 05/16/2017 SURGEON: Ander Marcus MD OPERATION PERFORMED: Right total knee arthroplasty with left knee corticosteroid injection. PREOPERATIVE DIAGNOSIS: Bilateral knee osteoarthrosis. POSTOPERATIVE DIAGNOSIS: Bilateral knee osteoarthrosis. ANESTHESIA: Local MAC with spinal. ANESTHESIA PROVIDER: Evelina Levin CRNA. ASSISTANTS: Maegan Jensen PA-C and Kirstie Patel LPN. ESTIMATED BLOOD LOSS: 250 mL. COMPLICATIONS: None. CONDITION: Stable. DESCRIPTION OF PROCEDURE: The patient was identified in the preop holding area. Proper site was marked and identified by the surgeon. The patient was taken back to the operative theater where after adequate anesthesia, the patient's right lower extremity had a nonsterile tourniquet applied and was then sterilely prepped and draped in the usual sterile fashion. OR time-out was performed. The patient received 2 g IV Ancef. At this time, right lower extremity was then exsanguinated. Tourniquet was insufflated to 250 mmHg. Standard medial parapatellar skin incision was made. A medial parapatellar arthrotomy was created. Deep fibers of the MCL were raised and the anterior fat pad was resected. Attention was turned to the patella. Patella measured 17 mm, resected to a 13 for a 29 x 9 mm patella. There was noted to be significant wear, so I was not worried about overstuffing of the patella. Drill holes were then drilled and was found to be adequate. At this time, attention was turned to the distal femur. Drill hole was placed in the distal femur. The intramedullary distal femoral cutting guide was then placed. An 8 mm was resected off the distal femur. This was found to be an adequate resection. Sizing guide was then placed and was found to be a size 5 femur. Epicondylar axis holes were drilled using Whitesides line and epicondyles as reference. A 4-in-1 cutting block for a size 5 was then placed and anterior and posterior chamfer cuts were then completed. It was found to be an adequate resection. Box cut was then completed for a size 5. Attention was turned to the tibia. Medial and lateral as well as posterior retractors were placed and the extramedullary tibial cutting guide was then placed in the old footprint of the ACL. At this time, 9 mm was measured off the unaffected lateral side and it was set for the center of the ankle with roughly 3 degrees posterior slope. At this time, the tibia was resected. It was found to be an adequate resection. The medial and lateral meniscus were removed along with any posterior osteophytes. A size 4 base plate was found to have adequate coverage. The patient was noted to have good bone stock, so at this time, it was decided that we would do press-fit. Drill holes were then drilled and distal femur for the press-fit. Trial implants were then placed. The patient's knee was brought through range of motion with a 9 mm trial spacer and was found to have full extension, flexion, and stability to varus valgus stress and the patella was tracking centrally. At this time, size 4 press-fit Laverne tibia was then impacted into place. A size 5 Laverne press-fit femur was then impacted into place and a 9 mm PS X3 polyethylene was impacted into place. The patient's knee was brought into full extension. A 29 x 9 mm press-fit patella was then compressed into place. All of that was found to have good bony contact. At this time, 1 L dilute Betadine solution was irrigated through the knee along 3 L of pulse lavage irrigation with Ancef. Periarticular injection was then completed. The patient's knee was found to be stable with full range of motion. Topical tranexamic acid was placed along with vancomycin powder. A #2 barbed suture was used for closure of the medial parapatellar arthrotomy, 2-0 Vicryl was used subcutaneously. A Prineo and Monocryl were used for the skin. The patient had a sterile soft dressing applied. After this was completed, 2 mL of 40 mg Kenalog and 4 mL and 0.25% Marcaine were injected to the left knee under sterile technique. The patient tolerated that well and was sent to the PACU in stable condition. ANDERSON /[id number]
== END 2017-05-17 14:32 | disposition home or self-care (01) | DRG 470 ==
LOC: JD.MS 10:43
PROVIDERS: ADMIT Orthopaedic Surgery; ATTEND Orthopaedic Surgery
PROC: 0SRC0J9 Replacement of Right Knee Joint with Synthetic Substitute, Cemented, Open Approach (ICD-10-PCS; principal; 2017-05-16)
PROC: 3E0U33Z Introduction of Anti-inflammatory into Joints, Percutaneous Approach (ICD-10-PCS; 2017-05-16)
PROC: 3E0U3BZ Introduction of Anesthetic Agent into Joints, Percutaneous Approach (ICD-10-PCS; 2017-05-16)
DX: M17.0 Bilateral primary osteoarthritis of knee (principal); I10 Essential (primary) hypertension; K21.9 Gastro-esophageal reflux disease without esophagitis; E78.00 Pure hypercholesterolemia, unspecified; E03.9 Hypothyroidism, unspecified; Z88.8 Allergy status to other drugs, medicaments and biological substances; Z79.899 Other long term (current) drug therapy
CPT/HCPCS: 01402; 36415; 73560-26-RT; 73560-RT; 80053; 85025; 94762; 97110-GP; 97116-GP; 97161-GP; 97165-GO; 97535-GO; A9270-GY; C1776; J0171; J0690; J0697; J1100; J1885; J2250; J2270; J2405; J2704; J3010; J3301; J3370; J3490; J7120

== ENCOUNTER 2017-11-21 06:17 | Day surgery (SDC) | payer MEDICARE, OTHER ==
[~2017-11-21 06:17] MED LIST changes: +Lidocaine 1%/Sod Bicarbonate in NS 8.4% 1 ML Syringe IDERM PRN; -Lidocaine 1%/Sod Bicarbonate in NS 8.4% 1 ML Syringe PRN
[2017-11-21] MEDS ORDERED: Iodine/Sodium Iodide 2% Tincture 30 ML Bottle ONE (06:34)
[2017-11-21] MEDS ORDERED: Cyclobenzaprine 10 MG Tab PO PRN (06:37)
[2017-11-21] MEDS ORDERED: Bisacodyl 5 MG Tab PO PRN (06:37)
[2017-11-21] MEDS ORDERED: fentaNYL 100 MCG/2 ML SDV ONE (06:43)
[2017-11-21] MEDS ORDERED: Ketamine 500 mg/10 ML MDV ONE (06:43)
[2017-11-21] MEDS ORDERED: Midazolam 1 MG/ML 2 ML SDV ONE (06:43)
[2017-11-21] MEDS ORDERED: Propofol 200 MG/20 ML SDV ONE (06:43)
[2017-11-21] MEDS ORDERED: ceFAZolin 1 GM Vial ONE (06:48)
[2017-11-21] MEDS ORDERED: EPINEPHrine 1 MG/ML SDV ONE (06:49)
[2017-11-21] MEDS ORDERED: Ropivacaine 0.5% 5 MG/ML 30 ML SDV ONE (06:49)
[2017-11-21] MEDS ORDERED: Lidocaine 1% 4 ML ONE (06:49)
[2017-11-21] MEDS ORDERED: Ondansetron 4 MG/2 ML SDV ONE (06:50)
[2017-11-21] MEDS ORDERED: Dexamethasone 4 MG/ML 5 ML MDV ONE (06:50)
--- NOTE | 2017-11-21 06:58 | PCM.PREANE ---
Preanesthetic Assessment - Procedure Proposed Procedure: L total knee arthroplasty - Anesthesia/Transfusion/Family Hx Anesthesia History: Prior Anesthesia Without Reaction Family History of Anesthesia Reaction: No Transfusion History: No Prior Transfusion(s) Intubation History: Unknown - Review of Systems General: No Symptoms Pulmonary: No Symptoms Cardiovascular: Other (HTN, HLD controlled ) Gastrointestinal: Other (GERD ) Neurological: No Symptoms Other: Reports: Thyroid Problems (hypothyroid) - Physical Assessment NPO Status Date: 11/20/17 NPO Status Time: 20:00 Pulse: 82 O2 Sat by Pulse Oximetry: 100 Respiratory Rate: 18 Blood Pressure: 151/84 Temperature: 36.4 C Height: 1.75 m Weight: 71.214 kg ASA Class: 2 Mental Status: Alert & Oriented x3 Airway Class: Mallampati = 3 Dentition: Reports: Normal Dentition Thyro-Mental Finger Breadths: 3 Mouth Opening Finger Breadths: 3 ROM/Head Extension: Full Lungs: Clear to Auscultation, Normal Respiratory Effort Cardiovascular: Regular Rate, Regular Rhythm - Lab Values: Laboratory Last Values MRSA (PCR) Negative 11/02/17 13:15 - Allergies Allergies/Adverse Reactions: Allergies Allergy/AdvReac Type Severity Reaction Status Date / Time moxifloxacin [From Avelox] Allergy Cannot Verified 11/18/17 13:04 Remember - Blood Blood Available: No Product(s) Available: None - Anesthesia Plan Pre-Op Medication Ordered: None - Acknowledgements Anesthesia Type Planned: Spinal, Regional Block (left adductor canal block ) Pt an Appropriate Candidate for the Planned Anesthesia: Yes Alternatives and Risks of Anesthesia Discussed w Pt/Guardian: Yes Pt/Guardian Understands and Agrees with Anesthesia Plan: Yes PreAnesthesia Questionnaire HEENT History: Reports: Impaired Vision Other HEENT History: wears glasses Cardiovascular History: Reports: High Cholesterol, Hypertension Respiratory History: Reports: None Gastrointestinal History: Reports: GERD Genitourinary History: Reports: None SHIRT IRONER History: Reports: None Musculoskeletal History: Reports: Back Pain, Chronic, Osteoarthritis, Other ( See Below) Other Musculoskeletal History: low back pain Neurological History: Reports: None Psychiatric History: Reports: None Endocrine/Metabolic History: Reports: Hypothyroidism Hematologic History: Reports: None Immunologic History: Reports: None Oncologic (Cancer) History: Reports: None Dermatologic History: Reports: Other (See Below) Other Dermatologic History: actinic keratosis, R hand skin biopsy, neuroma exicsion of hand - Past Surgical History Head Surgeries/Procedures: Reports: None HEENT Surgical History: Reports: Tonsillectomy Cardiovascular Surgical History: Reports: None Respiratory Surgical History: Reports: None GI Surgical History: Reports: Colonoscopy, EGD Female Surgical History: Reports: Hysterectomy Male Surgical History: Reports: None Endocrine Surgical History: Reports: None Neurological Surgical History: Reports: None Musculoskeletal Surgical History: Reports: None, Knee Replacement Other Musculoskeletal Surgeries/Procedures:: current RTK May 2017 Oncologic Surgical History: Reports: None Dermatological Surgical History: Reports: None - SUBSTANCE USE Smoking Status *Q: Never Smoker Recreational Drug Use History: No - HOME MEDS Home Medications: Home Meds Calcium Citrate/Vitamin D3 [Citracal + D Maximum Caplet] 1 tab PO DAILY [History] Multivits-Min/Iron/FA/Lutein [Centrum Silver Women Tablet] 1 tab PO DAILY [History] Omeprazole Magnesium [Prilosec Otc] 20 mg PO BID 05/13/17 [History] Levothyroxine 75 mcg PO ACBREAKFAST 05/16/17 [History] Pravastatin Sodium [Pravastatin (Pravachol)] 40 mg PO BEDTIME 05/16/17 [History] Albuterol [Ventolin HFA] 1 - 2 puff INH QID PRN 11/18/17 [History] Cholecalciferol (Vitamin D3) [Vitamin D3] 5,000 unit PO DAILY 11/18/17 [History] - CURRENT (IN HOUSE) MEDS Current Meds: Current Medications Aspirin (Ecotrin) 325 mg PO BID TREY Bisacodyl (Dulcolax) 5 mg PO DAILY PRN PRN Reason: Constipation Morphine Sulfate 8 mg/Epinephrine HCl 0.3 mg/Cefuroxime Sodium 750 mg/Ketorolac Tromethamine 30 mg/Sodium Chloride 27.9 ml 0 mg .XX ONETIME ONE Stop: 11/21/17 06:38 Cyclobenzaprine HCl (Flexeril) 10 mg PO TID PRN PRN Reason: Spasms Diphenhydramine HCl (Benadryl) 25 mg IVPUSH Q6H PRN PRN Reason: Nausea Docusate Sodium (Colace) 100 mg PO BID TREY Famotidine (Pepcid) 20 mg PO Q12H TREY Lactated Ringer's (Ringers, Lactated) 1,000 mls @ 125 mls/hr IV ASDIRECTED [facility] Stop: 11/21/17 23:00 Cefazolin Sodium/Dextrose 2 gm (/ Premix) 50 mls @ 100 mls/hr IV Q8H [facility] Stop: 11/21/17 23:14 Lidocaine/Sodium Bicarbonate (Buffered Lidocaine 1% In Ns 8.4%) 0.25 ml IDERM ONETIME PRN PRN Reason: Prior to IV Start Stop: 11/21/17 18:00 Magnesium Hydroxide (Milk Of Magnesia) 30 ml PO BID PRN PRN Reason: Constipation Morphine Sulfate (Morphine) 2 mg IVPUSH Q2H PRN PRN Reason: Breakthrough Pain Naloxone HCl (Narcan) 0.1 mg IVPUSH Q5M PRN PRN Reason: Oversedation Ondansetron HCl (Zofran) 4 mg IVPUSH Q6H PRN PRN Reason: Nausea/Vomiting Oxycodone/Acetaminophen (Percocet 325-5 Mg) 1 - 2 tab PO Q4H PRN PRN Reason: Pain Senna (Senna) 8.6 mg PO BID PRN PRN Reason: Constipation Sodium Chloride (Saline Flush) 10 ml FLUSH ASDIRECTED PRN PRN Reason: Keep Vein Open Stop: 11/21/17 18:00 Discontinued Medications Bupivacaine HCl (Marcaine 0.25%) Confirm Administered Dose 30 ml .ROUTE .STK- MED ONE Stop: 11/21/17 06:35 Cefazolin Sodium (Ancef) Confirm Administered Dose 2 gm .ROUTE .STK-MED ONE Stop: 11/21/17 06:49 Cefazolin Sodium (Ancef) Confirm Administered Dose 2 gm .ROUTE .STK-MED ONE Stop: 11/21/17 06:35 Dexamethasone (Dexamethasone) Confirm Administered Dose 20 mg .ROUTE .STK-MED ONE Stop: 11/21/17 06:51 Fentanyl (Sublimaze) Confirm Administered Dose 100 mcg .ROUTE .STK-MED ONE Stop: 11/21/17 06:44 Lidocaine HCl (Xylocaine-Mpf 1%) Confirm Administered Dose 4 mls @ as directed .ROUTE .STK-MED ONE Stop: 11/21/17 06:50 Iodine (Iodine 2% Mild Tincture) Confirm Administered Dose 30 ml .ROUTE .STK- MED ONE Stop: 11/21/17 06:35 Ketamine HCl (Ketalar) Confirm Administered Dose 500 mg .ROUTE .STK-MED ONE Stop: 11/21/17 06:44 Lidocaine HCl (Xylocaine-Mpf 1%) Confirm Administered Dose 5 ml .ROUTE .STK-MED ONE Stop: 11/21/17 06:50 Midazolam HCl (Versed 1 Mg/Ml) Confirm Administered Dose 2 mg .ROUTE .STK-MED ONE Stop: 11/21/17 06:44 Ondansetron HCl (Zofran) Confirm Administered Dose 4 mg .ROUTE .STK-MED ONE Stop: 11/21/17 06:51 Propofol (Diprivan 20 Ml) Confirm Administered Dose 600 mg .ROUTE .STK-MED ONE Stop: 11/21/17 06:44 Tranexamic Acid (Cyklokapron) Confirm Administered Dose 1,000 mg .ROUTE .STK- MED ONE Stop: 11/21/17 06:34 Vancomycin HCl (Vancomycin) Confirm Administered Dose 1 gm .ROUTE .STK-MED ONE Stop: 11/21/17 06:34
[2017-11-21] MEDS ORDERED: Bupivacaine 0.75% 30 ML SDV ONE (07:29)
[2017-11-21] MEDS ORDERED: Lactated Ringers 1,000 ML ONE (08:03)
[2017-11-21] MEDS: ceFAZolin 1 GM Vial ONE ×2 (08:35→08:36)
[2017-11-21] MEDS: Bupivacaine 0.25% 30 ML SDV ONE ×2 (08:38→08:42)
[2017-11-21] MEDS: Vancomycin 1 GM SDV ONE ×2 (08:38→08:42)
[2017-11-21] MEDS: Morphine 8 MG, EPINEPHrine 0.3 MG, Cefuroxime 750 MG, Ketorolac 30 MG, Sodium Chloride ... ONE ×10 (08:38→08:41)
[2017-11-21] MEDS ORDERED: Acetaminophen 325 MG Tab PO ONE ×2 (08:54→08:55)
--- NOTE | 2017-11-21 08:55 | PCM.OPNOTE ---
- General Post-Op/Procedure Note Date of Surgery/Procedure: 11/21/17 Operative Procedure(s): left total knee arthroplasty Pre Op Diagnosis: left knee osteoarthrosis Post-Op Diagnosis: Same Anesthesia Technique: Local, MAC, Spinal Primary Surgeon: Ander Marcus Anesthesia Provider: Veronique Hollingsworth Wide Load Escort: Maegan Jensen Wide Load Escort: Kirstie Patel EBL in mLs: 250 Complications: None Condition: Good Free Text/Narrative:: size 5 press fit femur size 4 press fit tibia size 4 9mm CS poly 29x9 press fit
[2017-11-21] MEDS ORDERED: oxyCODONE ER 10 MG TAB.ER PO ONE (08:56)
[2017-11-21] MEDS ORDERED: Pregabalin 25 MG Cap PO SCH (09:00)
[2017-11-21] MEDS ORDERED: Naloxone 0.4 MG/ML SDV IVPUSH PRN (09:00)
[2017-11-21] MEDS ORDERED: Sennosides 8.6 MG Tab PO PRN (09:00)
[2017-11-21] MEDS ORDERED: Morphine 4 MG/ML Syringe IVPUSH PRN (09:00)
[2017-11-21] MEDS ORDERED: Ondansetron 4 MG/2 ML SDV IVPUSH PRN ×2 (09:00→09:39)
[2017-11-21] MEDS ORDERED: Magnesium Hydroxide 400 MG/5 ML Susp 30 ML Cup PO PRN (09:00)
[2017-11-21] MEDS ORDERED: diphenhydrAMINE 50 MG/ML SDV IVPUSH PRN ×2 (09:00→09:39)
--- NOTE | 2017-11-21 09:37 | PCM.POSTAN ---
POST ANESTHESIA ASSESSMENT - MENTAL STATUS Mental Status: Alert, Oriented - VITAL SIGNS Pulse Rate: 80 SaO2: 100 Resp Rate: 11 Blood Pressure: 122/70 Temperature: 36.3 C - RESPIRATORY Respiratory Status: Respiratory Rate WNL, Airway Patent, O2 Saturation Stable, Supplemental Oxygen - CARDIOVASCULAR CV Status: Pulse Rate WNL, Blood Pressure Stable - GASTROINTESTINAL GI Status: No Symptoms - PAIN Pain Score: 0 - POST OP HYDRATION Hydration Status: Adequate & Stable
[2017-11-21] MEDS ORDERED: Ketorolac 30 MG/ML SDV IVPUSH ONE (09:39)
[2017-11-21] MEDS ORDERED: fentaNYL 100 MCG/2 ML SDV IVPUSH PRN (09:39)
[2017-11-21] MEDS ORDERED: Albuterol 6.7 GM Inhaler INH PRN (09:58)
--- NOTE | 2017-11-21 10:05 | CR ---
Left knee: AP and lateral views of the left knee were obtained. Comparison: Previous left knee study of 12/22/16. Knee prosthesis is seen. Components are aligned. Underlying bony structures are intact. Soft tissue air is noted from the surgical procedure. Impression: 1. Satisfactory postoperative radiographic appearance of recently placed left knee prosthesis. Diagnostic code #2
--- NOTE | 2017-11-21 12:40 | PCM.SN ---
- Free Text/Narrative Note: Anesthesia Note: Date: 11/21/2017 Time Out: 921 Start: 925 Stop: 928 Procedure: Left Femoral Nerve Block Under US Guidance for post operative pain control requested by Dr. Marcus. Patient chart reviewed, allergies noted, and risk/benefits discussed with consent obtained. Patient placed in supine position, monitors/alarms on, O2 placed via nasal cannula at 2LP. Sterile technique noted with sterile gloves, cap, mask, and sterile drapes. Right groin area prepped with chloroprep times two. Femoral artery, Femoral vein, and Femoral nerve branch visualized under US guidance (sterile sleeve) noted. Stimiplex 21 gauge 4 inch needle advanced under US guidance. Ropivacaine 0.5% with 1:200,000 epinephrine injected incrementally with negative aspirations for a total volume of 25 ml's. VSS no complains of.
[2017-11-21] MEDS: ceFAZolin 2 GM in Premix Bag 1 BAG IV SCH ×2 (14:49→23:51)
[2017-11-21] MEDS: Pantoprazole 40 MG Tab.CR PO SCH (16:03)
[2017-11-21] MEDS: Acetaminophen/oxyCODONE 325-5 MG Tab PO PRN (16:03)
[2017-11-21] MEDS ORDERED: Cholecalciferol (Vitamin D3) 1,000 Unit Tab PO SCH (17:00)
[2017-11-21] MEDS ORDERED: Calcium Carbonate/Vitamin D3 600 MG-200 Units Tab PO SCH (17:00)
[2017-11-21] MEDS: Docusate Sodium 100 MG Cap PO SCH (20:57)
[2017-11-21] MEDS ORDERED: Famotidine 20 MG Tab PO SCH (21:00)
[2017-11-22] MEDS ORDERED: Levothyroxine 75 MCG Tab PO SCH (06:00)
[2017-11-22] MEDS: ceFAZolin 2 GM in Premix Bag 1 BAG IV SCH (06:33)
--- NOTE | 2017-11-22 06:33 | PCM.CONS ---
H&P History of Present Illness - General Date of Service: 11/22/17 Admit Problem/Dx: Admission Diagnosis/Problem Admission Diagnosis/Problem Osteoarthritis of knee Source of Information: Patient, Old Records, Provider, RN History Limitations: Reports: No Limitations - History of Present Illness Initial Comments - Free Text/Narative: Minna Gonzalez is a 72 yo female patient of Dr. Marcus who is post-operative day 1 of left TKA. Hospital medicine was consulted for post-operative medical care. At this time she is resting comfortably in bed. Pain is controlled. She denies any chest pain, shortness of breath, or palpitations. She has had some nausea and vomiting this AM which has resolved. She carries a history of: HLD, HTN, GERD, chronic back pain, osteoarthritis, hypothyroidism, prior right TKA. She was never a smoker. She is a full code. Her primary care provider is Dr. Monroe at [facility]. - Related Data Allergies/Adverse Reactions: Allergies Allergy/AdvReac Type Severity Reaction Status Date / Time moxifloxacin [From Avelox] Allergy Cannot Verified 11/21/17 07:17 Remember Home Medications: Home Meds Calcium Citrate/Vitamin D3 [Citracal + D Maximum Caplet] 1 tab PO DAILY [History] Multivits-Min/Iron/FA/Lutein [Centrum Silver Women Tablet] 1 tab PO DAILY [History] Omeprazole Magnesium [Prilosec Otc] 20 mg PO BID 05/13/17 [History] Levothyroxine 75 mcg PO ACBREAKFAST 05/16/17 [History] Pravastatin Sodium [Pravastatin (Pravachol)] 40 mg PO BEDTIME 05/16/17 [History] Albuterol [Ventolin HFA] 1 - 2 puff INH QID PRN 11/18/17 [History] Cholecalciferol (Vitamin D3) [Vitamin D3] 5,000 unit PO DAILY 11/18/17 [History] Acetaminophen [Tylenol Extra Strength] 1,000 mg PO ASDIRECTED PRN #0 11/21/17 [ Rx] Acetaminophen/oxyCODONE [Percocet 325-5 MG] 1 - 2 tab PO Q6H PRN #60 tablet 05/02 [Rx] Aspirin [Ecotrin] 325 mg PO BID #84 tab.ec 11/21/17 [Rx] Bisacodyl [Dulcolax] 5 mg PO DAILY PRN tablet 11/21/17 [Rx] Cyclobenzaprine [Flexeril] 10 mg PO TID PRN #40 tablet 11/21/17 [Rx] Docusate Sodium [Colace] 100 mg PO BID cap 11/21/17 [Rx] Famotidine [Pepcid] 20 mg PO Q12H tablet 11/21/17 [Rx] Hydrochlorothiazide 12.5 mg PO DAILY 11/21/17 [History] Loratadine [Claritin] 10 mg PO ASDIRECTED PRN 11/21/17 [History] Magnesium Hydroxide [Milk of Magnesia] 30 ml PO BID PRN cup 11/21/17 [Rx] Sennosides [Senna] 8.6 mg PO BID PRN tablet 11/21/17 [Rx] Ondansetron [Zofran ODT] 4 mg PO Q6H PRN #20 tab.dis 11/22/17 [Rx] Past Medical History HEENT History: Reports: Impaired Vision Other HEENT History: wears glasses Cardiovascular History: Reports: High Cholesterol, Hypertension Respiratory History: Reports: None Gastrointestinal History: Reports: GERD Genitourinary History: Reports: None DENTURE FINISHER History: Reports: None Musculoskeletal History: Reports: Back Pain, Chronic, Osteoarthritis, Other ( See Below) Other Musculoskeletal History: low back pain Neurological History: Reports: None Psychiatric History: Reports: None Endocrine/Metabolic History: Reports: Hypothyroidism Hematologic History: Reports: None Immunologic History: Reports: None Oncologic (Cancer) History: Reports: None Dermatologic History: Reports: Other (See Below) Other Dermatologic History: actinic keratosis, R hand skin biopsy, neuroma exicsion of hand - Past Surgical History Head Surgeries/Procedures: Reports: None HEENT Surgical History: Reports: Tonsillectomy Cardiovascular Surgical History: Reports: None Respiratory Surgical History: Reports: None GI Surgical History: Reports: Colonoscopy, EGD Female Surgical History: Reports: Hysterectomy Male Surgical History: Reports: None Endocrine Surgical History: Reports: None Neurological Surgical History: Reports: None Musculoskeletal Surgical History: Reports: None, Knee Replacement Other Musculoskeletal Surgeries/Procedures:: current RTK May 2017 Oncologic Surgical History: Reports: None Dermatological Surgical History: Reports: None Social & Family History - Family History Family Medical History: Noncontributory - Tobacco Use Smoking Status *Q: Never Smoker - Caffeine Use Caffeine Use: Reports: Coffee, Tea Other Caffeine Use: 1-2 cups of coffee a day - Recreational Drug Use Recreational Drug Use: No H&P Review of Systems - Review of Systems: Review Of Systems: See Below General: Reports: No Symptoms HEENT: Reports: No Symptoms Pulmonary: Reports: No Symptoms Cardiovascular: Reports: No Symptoms Gastrointestinal: Reports: No Symptoms Genitourinary: Reports: No Symptoms Musculoskeletal: Reports: Joint Pain Skin: Reports: No Symptoms Psychiatric: Reports: No Symptoms Neurological: Reports: No Symptoms Hematologic/Lymphatic: Reports: No Symptoms Immunologic: Reports: No Symptoms Exam - Exam Exam: See Below - Vital Signs Vital Signs: Last Vital Signs Temp 97.5 F 11/22/17 05:43 Pulse 73 11/22/17 05:43 Resp 16 11/22/17 05:43 BP 116/60 11/22/17 05:43 Pulse Ox 95 11/22/17 05:43 Weight: 156 lb - Exam Quality Assessment: DVT Prophylaxis General: Alert, Oriented, Cooperative. No: Mild Distress HEENT: Conjunctiva Clear, EACs Clear, EOMI, Hearing Intact, Mucosa Moist & [place] , Nares Patent, Posterior Pharynx Clear, PERRLA Neck: Supple, Trachea Midline Lungs: Clear to Auscultation, Normal Respiratory Effort Cardiovascular: Regular Rate, Regular Rhythm GI/Abdominal Exam: Normal Bowel Sounds, Soft, Non-Tender, No Organomegaly, No Distention, No Abnormal Bruit, No Mass, Pelvis Stable (Female) Exam: Deferred Rectal (Female) Exam: Deferred Back Exam: Normal Inspection, Full Range of Motion Extremities: No Pedal Edema, Normal Capillary Refill, Leg Pain, Limited Range of Motion, Other (GREGORY bandage in place on left leg. Bandage is dry and intact. Cooling pack in place. ) Peripheral Pulses: 2+: Radial (L), Radial (R), Posterior Tibial (L), Posterior Tibial (R), Dorsalis Pedis (L), Dorsalis Pedis (R) Skin: Warm, Dry, Intact Neurological: Cranial Nerves Intact (grossly ) Neuro Extensive - Mental Status: Alert, Oriented x3, Normal Mood/Affect, Normal Cognition, Memory Intact Psychiatric: Alert, Normal Affect, Normal Mood - Patient Data Lab Results Last 24 hrs: Laboratory Results - last 24 hr 11/22/17 Range/Units 05:50 WBC 16.03 H (3.98-10.04) K/mm3 RBC 4.07 (3.98-5.22) M/mm3 Hgb 11.7 (11.2-15.7) gm/L Hct 35.4 (34.1-44.9) % MCV 87.0 (79.4-94.8) fl MCH 28.7 (25.6-32.2) pg MCHC 33.1 (32.2-35.5) g/dl RDW Std Deviation 45.2 (36.4-46.3) fL Plt Count 290 (182-369) K/mm3 MPV 9.6 (9.4-12.3) fl Result Diagrams: 11/22/17 05:50 11/22/17 05:50 Consult PN Assessment/Plan POD#: 1 Procedures: Procedures BONE IMAGING WHOLE BODY (02/28/17) COMPLETE CBC W/AUTO DIFF WBC (05/16/17) COMPREHEN METABOLIC PANEL (05/16/17) DXA BONE DENSITY AXIAL (11/03/17) GAIT TRAINING THERAPY (05/16/17) MEASURE BLOOD OXYGEN LEVEL (05/16/17) MRI JNT OF LWR EXTRE W/O DYE (12/09/16) MRI LUMBAR SPINE W/O DYE (02/28/17) OFFICE/OUTPATIENT VISIT EST (12/22/16) OT EVAL LOW COMPLEX 30 MIN (05/16/17) PT EVAL LOW COMPLEX 20 MIN (05/16/17) ROUTINE VENIPUNCTURE (05/16/17) SELF CARE MNGMENT TRAINING (05/16/17) THERAPEUTIC EXERCISES (05/16/17) X-RAY EXAM OF KNEE 1 OR 2 (05/16/17) X-RAY EXAM OF KNEES (12/22/16) (1) S/P total knee arthroplasty SNOMED Code(s): 8701074272298, 649496451, 2472055911903 Code(s): Z96.659 - PRESENCE OF UNSPECIFIED ARTIFICIAL KNEE JOINT Priority: High Current Visit: Yes Qualifiers: Laterality: left Qualified Code(s): Z96.652 - Presence of left artificial knee joint (2) Osteoarthritis SNOMED Code(s): 895170149 Code(s): M19.90 - UNSPECIFIED OSTEOARTHRITIS, UNSPECIFIED SITE Priority: High Current Visit: Yes Qualifiers: Osteoarthritis location: knee Osteoarthritis type: primary Laterality: left Qualified Code(s): M17.12 - Unilateral primary osteoarthritis, left knee (3) GERD (gastroesophageal reflux disease) SNOMED Code(s): 722802863 Code(s): K21.9 - GASTRO-ESOPHAGEAL REFLUX DISEASE WITHOUT ESOPHAGITIS Priority: Low Current Visit: No Qualifiers: Esophagitis presence: esophagitis presence not specified Qualified Code(s) : K21.9 - Gastro-esophageal reflux disease without esophagitis (4) Chronic back pain SNOMED Code(s): 400429476 Code(s): M54.9 - DORSALGIA, UNSPECIFIED; G89.29 - OTHER CHRONIC PAIN Priority: Low Current Visit: No Qualifiers: Back pain location: back pain in unspecified location Back pain laterality : unspecified Qualified Code(s): M54.9 - Dorsalgia, unspecified; G89.29 - Other chronic pain (5) Hyperlipidemia SNOMED Code(s): 01391600 Code(s): E78.5 - HYPERLIPIDEMIA, UNSPECIFIED Priority: Low Current Visit : No Qualifiers: Hyperlipidemia type: unspecified Qualified Code(s): E78.5 - Hyperlipidemia , unspecified (6) Hypertension SNOMED Code(s): 72758302 Code(s): I10 - ESSENTIAL (PRIMARY) HYPERTENSION Priority: Medium Current Visit: No Qualifiers: Hypertension type: unspecified Qualified Code(s): I10 - Essential (primary ) hypertension (7) Hypothyroidism SNOMED Code(s): 27606870 Code(s): E03.9 - HYPOTHYROIDISM, UNSPECIFIED Priority: Medium Current Visit: No Qualifiers: Hypothyroidism type: unspecified Qualified Code(s): E03.9 - Hypothyroidism , unspecified Problem List Initiated/Reviewed/Updated: Yes Plan: I/P: Acute: S/P left total knee arthroplasty - post-operative day 1 -DVT prophylaxis and pain management per primary care team -PT/OT -IS/RT -Monitor oxygen saturation -Titrate oxygen as needed -Vital signs stable -Monitor labs -Pre-operative Hgb was 15.2, now 11.7 -Pre-operative A1C 5.8 -Pre-operative GFR 54, now 55 -Pre-operative leukocytosis - 13.45, CRP >2.0 Osteoarthritis of left knee -Pain management per primary care team Chronic: HLD HTN GERD Hypothyroid Chronic back pain Plan: CM for discharge planning GI prophylaxis Home medications as indicated Other orders as listed above Routine AM labs She is a full code. Her PCP is Dr. Monroe at [facility]. She is doing very well today. Labs look good. He has been ambulating with PT/ OT. She reports she has walked several laps last night. She has urinated. Labs look good. She has no concerns. From a hospitalist standpoint she is clear for discharge pending primary team approval. Thank you for allowing us to participate in the care of this patient!! Requesting Provider: Dr. Marcus Date Consult Requested: 11/21/17 Reason for Consult: Post-operative medical care Patient History Reviewed: Yes Admission H&P Reviewed: Yes
[2017-11-22] MEDS: Acetaminophen/oxyCODONE 325-5 MG Tab PO PRN (06:38)
[2017-11-22] MEDS: Pantoprazole 40 MG Tab.CR PO SCH (06:39)
[2017-11-22] MEDS: Docusate Sodium 100 MG Cap PO SCH (08:44)
[2017-11-22] MEDS ORDERED: Multivitamins,Therapeutic Tab PO SCH (09:00)
[2017-11-22] MEDS ORDERED: Hydrochlorothiazide 12.5 MG Cap PO SCH (09:00)
[2017-11-22] MEDS ORDERED: Loratadine 10 MG Tab PO PRN (09:00)
[2017-11-22] MEDS ORDERED: Aspirin 325 MG Tab.EC PO SCH (09:00)
[2017-11-22 10:44] VITALS: BP 118/61
[2017-11-22] MEDS ORDERED: Simvastatin 20 MG Tab PO SCH (21:00)
--- NOTE | 2017-11-23 10:58 | PCM.SURGPN ---
- General Info Date of Service: 11/22/17 POD#: 1 Functional Status: Reports: Pain Controlled, Tolerating Diet, Ambulating, Urinating, Incentive Spirometry - Review of Systems Musculoskeletal: Reports: Other (The pt has progressed well with therapy.) - Patient Data Vitals - Most Recent: Last Vital Signs Temp 97.3 F 11/22/17 08:46 Pulse 72 11/22/17 08:46 Resp 16 11/22/17 08:46 BP 118/61 11/22/17 08:46 Pulse Ox 97 11/22/17 08:46 Weight - Most Recent: 156 lb Med Orders - Current: Current Medications Discontinued Medications Acetaminophen (Tylenol) 975 mg PO NOW ONE Stop: 11/21/17 08:56 Last Admin: 11/21/17 09:48 Dose: 975 mg Albuterol (Proventil Hfa) 1 - 2 gm INH QID PRN PRN Reason: Shortness of Breath Aspirin (Ecotrin) 325 mg PO BID [facility] Last Admin: 11/22/17 08:45 Dose: 325 mg Bisacodyl (Dulcolax) 5 mg PO DAILY PRN PRN Reason: Constipation Bupivacaine HCl (Marcaine 0.25%) Confirm Administered Dose 30 ml .ROUTE .STK- MED ONE Stop: 11/21/17 06:35 Last Admin: 11/21/17 08:42 Dose: 30 ml Bupivacaine HCl (Sensorcaine-Mpf 0.75%) Confirm Administered Dose 30 ml .ROUTE .STK-MED ONE Stop: 11/21/17 07:30 Calcium Carbonate (Calcium Carbonate/Vitamin D 600 Mg-200 Unit) 1 tab PO DAILY@ 1700 [facility] Last Admin: 11/21/17 16:03 Dose: 1 tab Cefazolin Sodium (Ancef) Confirm Administered Dose 2 gm .ROUTE .STK-MED ONE Stop: 11/21/17 06:49 Cefazolin Sodium (Ancef) Confirm Administered Dose 2 gm .ROUTE .STK-MED ONE Stop: 11/21/17 06:35 Last Admin: 11/21/17 08:36 Dose: 2 gm Cholecalciferol (Vitamin D3) 5,000 units PO DAILY@1700 [facility] Last Admin: 11/21/17 16:02 Dose: 5,000 units Morphine Sulfate 8 mg/Epinephrine HCl 0.3 mg/Cefuroxime Sodium 750 mg/Ketorolac Tromethamine 30 mg/Sodium Chloride 27.9 ml 0 mg .XX ONETIME ONE Stop: 11/21/17 07:31 Last Admin: 11/21/17 08:41 Dose: 788.3 mg Cyclobenzaprine HCl (Flexeril) 10 mg PO TID PRN PRN Reason: Spasms Last Admin: 11/22/17 06:38 Dose: 10 mg Dexamethasone (Dexamethasone) Confirm Administered Dose 20 mg .ROUTE .STK-MED ONE Stop: 11/21/17 06:51 Diphenhydramine HCl (Benadryl) 25 mg IVPUSH Q6H PRN PRN Reason: Nausea Diphenhydramine HCl (Benadryl) 25 mg IVPUSH Q6H PRN PRN Reason: Pruritis Stop: 11/21/17 16:00 Docusate Sodium (Colace) 100 mg PO BID [facility] Last Admin: 11/22/17 08:44 Dose: 100 mg Epinephrine HCl (Adrenalin) Confirm Administered Dose 1 mg .ROUTE .STK-MED ONE Stop: 11/21/17 06:50 Famotidine (Pepcid) 20 mg PO Q12H [facility] Fentanyl (Sublimaze) Confirm Administered Dose 100 mcg .ROUTE .STK-MED ONE Stop: 11/21/17 06:44 Fentanyl (Sublimaze) 50 mcg IVPUSH Q5M PRN PRN Reason: Pain Stop: 11/21/17 09:40 Hydrochlorothiazide (Hydrochlorothiazide) 12.5 mg PO DAILY [facility] Last Admin: 11/22/17 08:44 Dose: 12.5 mg Lactated Ringer's (Ringers, Lactated) 1,000 mls @ 125 mls/hr IV ASDIRECTED [facility] Stop: 11/21/17 23:00 Last Admin: 11/21/17 06:30 Dose: 125 mls/hr Lidocaine HCl (Xylocaine-Mpf 1%) Confirm Administered Dose 4 mls @ as directed .ROUTE .STK-MED ONE Stop: 11/21/17 06:50 Cefazolin Sodium/Dextrose 2 gm (/ Premix) 50 mls @ 100 mls/hr IV Q8H [facility] Stop: 11/22/17 07:29 Last Admin: 11/22/17 06:33 Dose: 100 mls/hr Lactated Ringer's (Ringers, Lactated) Confirm Administered Dose 1,000 mls @ as directed .ROUTE .STK-MED ONE Stop: 11/21/17 08:04 Iodine (Iodine 2% Mild Tincture) Confirm Administered Dose 30 ml .ROUTE .STK- MED ONE Stop: 11/21/17 06:35 Last Admin: 11/21/17 08:34 Dose: 18 ml Ketamine HCl (Ketalar) Confirm Administered Dose 500 mg .ROUTE .STK-MED ONE Stop: 11/21/17 06:44 Ketorolac Tromethamine (Toradol) 15 mg IVPUSH ONETIME ONE Stop: 11/21/17 09:40 Last Admin: 11/21/17 12:50 Dose: Not Given Levothyroxine Sodium (Levothyroxine) 75 mcg PO ACBREAKFAST [facility] Last Admin: 11/22/17 05:22 Dose: 75 mcg Lidocaine HCl (Xylocaine-Mpf 1%) Confirm Administered Dose 5 ml .ROUTE .STK-MED ONE Stop: 11/21/17 06:50 Lidocaine/Sodium Bicarbonate (Buffered Lidocaine 1% In Ns 8.4%) 0.25 ml IDERM ONETIME PRN PRN Reason: Prior to IV Start Stop: 11/21/17 18:00 Last Admin: 11/21/17 06:29 Dose: 0.25 ml Loratadine (Claritin) 10 mg PO DAILY PRN PRN Reason: Rhinitis Magnesium Hydroxide (Milk Of Magnesia) 30 ml PO BID PRN PRN Reason: Constipation Midazolam HCl (Versed 1 Mg/Ml) Confirm Administered Dose 2 mg .ROUTE .STK-MED ONE Stop: 11/21/17 06:44 Morphine Sulfate (Morphine) 2 mg IVPUSH Q2H PRN PRN Reason: Breakthrough Pain Multivitamins (Thera) 1 each PO DAILY [facility] Last Admin: 11/22/17 08:45 Dose: 1 each Naloxone HCl (Narcan) 0.1 mg IVPUSH Q5M PRN PRN Reason: Oversedation Ondansetron HCl (Zofran) Confirm Administered Dose 4 mg .ROUTE .STK-MED ONE Stop: 11/21/17 06:51 Ondansetron HCl (Zofran) 4 mg IVPUSH Q6H PRN PRN Reason: Nausea/Vomiting Last Admin: 11/22/17 08:45 Dose: 4 mg Ondansetron HCl (Zofran) 4 mg IVPUSH ONETIME PRN PRN Reason: Nausea/Vomiting Stop: 11/21/17 16:00 Oxycodone HCl (Oxycontin) 10 mg PO ONETIME ONE Stop: 11/21/17 08:57 Last Admin: 11/21/17 09:49 Dose: 10 mg Oxycodone/Acetaminophen (Percocet 325-5 Mg) 1 - 2 tab PO Q4H PRN PRN Reason: Pain Last Admin: 11/22/17 06:38 Dose: 2 tab Pantoprazole Sodium (Protonix) 40 mg PO BIDMEALS [facility]RE[facility] Last Admin: 11/22/17 06:39 Dose: 40 mg Pregabalin (Lyrica) 50 mg PO ONETIME [facility] Stop: 11/21/17 12:00 Last Admin: 11/21/17 09:48 Dose: 50 mg Propofol (Diprivan 20 Ml) Confirm Administered Dose 600 mg .ROUTE .STK-MED ONE Stop: 11/21/17 06:44 Ropivacaine (Naropin 0.5%) Confirm Administered Dose 30 ml .ROUTE .STK-MED ONE Stop: 11/21/17 06:50 Senna (Senna) 8.6 mg PO BID PRN PRN Reason: Constipation Simvastatin (Zocor) 20 mg PO BEDTIME [facility] Sodium Chloride (Saline Flush) 10 ml FLUSH ASDIRECTED PRN PRN Reason: Keep Vein Open Stop: 11/21/17 18:00 Tranexamic Acid (Cyklokapron) Confirm Administered Dose 1,000 mg .ROUTE .STK- MED ONE Stop: 11/21/17 06:34 Last Admin: 11/21/17 08:48 Dose: 1,000 mg Vancomycin HCl (Vancomycin) Confirm Administered Dose 1 gm .ROUTE .STK-MED ONE Stop: 11/21/17 06:34 Last Admin: 11/21/17 08:42 Dose: 1 gm - Exam Wound/Incisions: Dressing Dry and Intact General: Alert, Cooperative, No Acute Distress Lungs: Normal Respiratory Effort Extremities: Other (NVS intact for BLE. Fredy's negative.) - Problem List Review Problem List Initiated/Reviewed/Updated: Yes - Assessment Assessment (Free Text/Narrative):: POD#1 - left TKA - Plan Plan (Free Text/Narrative):: 1. Hgb 11.7. 2. Discharge to home today. 3. Outpatient P.T. 4. 325mg ASA BID, frequent mobility, SCDs. 5. Further orders per Hospitalist service. The pt's case was discussed with Dr. Marcus.
--- NOTE | 2017-11-29 07:25 | OR ---
DATE OF OPERATION: 11/21/2017 SURGEON: Ander Marcus MD OPERATION PERFORMED: Left total knee arthroplasty. PREOPERATIVE DIAGNOSIS: Left knee osteoarthrosis. POSTOPERATIVE DIAGNOSIS: Left knee osteoarthrosis. ANESTHESIA: Local MAC with spinal. ANESTHESIA PROVIDER: Evelina Levin. ASSISTANTS: Maegan Jensen PA-C and Kirstie Patel LPN. ESTIMATED BLOOD LOSS: 250 mL. COMPLICATIONS: None. CONDITION: Stable. IMPLANTS: 1. Fayette size 5 press-fit femur. 2. Fayette size 4 press-fit tibia. 3. Fayette size 4 9 mm CS polyethylene insert. 4. Fayette size 29 x 9 mm press-fit patella. DESCRIPTION OF PROCEDURE: The patient was identified in the preop holding area. Proper site was marked and identified by the surgeon. The patient was taken back to the operating theater. After adequate anesthesia, the patient's left lower extremity had a nonsterile tourniquet applied and it was then sterilely prepped and draped in the usual sterile fashion. OR timeout was performed. The patient received 2 g IV Ancef. At this time, left lower extremity was exsanguinated. Tourniquet was insufflated to 300 mmHg. Standard medial parapatellar incision was made. Medial parapatellar arthrotomy was created. Deep fibers of the MCL were raised and anterior fat pad was resected. At this time, attention was turned to the patella. Patella measured 21, it was resected to a 13 for a 29 x 9 mm patella. Drill holes were then drilled and found to be in adequate position. The drill was then drilled in the distal femur and the intramedullary distal femoral cutting guide was then placed. 9 mm was resected off the distal femur and was found to be an adequate resection. Sizing guide was placed. It was found to be a size 5 press-fit femur that was shown on the implant record at the beginning of this dictation. The drill holes were drilled for the epicondylar axis using Whitesides line and epicondyles as reference. At this time, the 4-in-1 cutting block was placed. An anterior posterior and anterior and posterior chamfer cuts were then completed. The correct size box cut was then placed and the box cut was completed and found to be an adequate resection. Attention was turned to the tibia. The posterior medial lateral retractors were placed. The extramedullary tibial guide was placed. It was placed in the old footprint of the ACL. It was aligned with the center of the ankle and 0 degrees of slope, 9 mm was then resected off the unaffected lateral side. There was found to be an acceptable reduction. At this time, posterior osteophytes were removed along with medial and lateral meniscus. A trial implant was placed with a correct sized tibia that was mentioned at the beginning of the dictation. A Laverne size 4 9 mm CS polyethylene was then placed. The patient's knee was brought through range of motion. The patella was tracking centrally and was stable to varus and valgus stress. Alignment was found to be roughly at 0 degrees. The tibia was stamped and drilled in proper rotation. The universal tibial base plate was press-fit in place. Next, the Fayette size 5 press-fit femur press-fit into place and the Laverne size 4 9 mm CS polyethylene was placed. The patient's knee was brought into full extension. The patella was then press-fit in place at this time. Tourniquet was deflated. One liter dilute Betadine solution was irrigated through the knee along with 3 L of pulse lavage irrigation with Ancef. Periarticular injection was then completed. The patient's knee was brought through a range of motion. Knee was found to be stable to varus valgus stress, the patella was tracking centrally with full range of motion. At this time, a #2 barbed suture was used for closure of the medial parapatellar arthrotomy. Topical tranexamic acid was placed. 2-0 Vicryl was used subcutaneously, a running 3-0 Monocryl was used subcuticularly. Prineo was applied as well. The patient tolerated the procedure well and was sent to the PACU in stable condition. MMODAL /[id number] JOHN
== END 2017-11-22 11:35 | disposition home or self-care (01) ==
LOC: JD.SDS 06:17 → JD.MS 14:15 → JD.SDS 11-22 11:35
PROVIDERS: ATTEND Orthopaedic Surgery
DX: M17.12 Unilateral primary osteoarthritis, left knee (principal); I10 Essential (primary) hypertension; E78.00 Pure hypercholesterolemia, unspecified; K21.9 Gastro-esophageal reflux disease without esophagitis; L57.0 Actinic keratosis; E03.9 Hypothyroidism, unspecified; G89.29 Other chronic pain; M54.5 Low back pain; Z88.8 Allergy status to other drugs, medicaments and biological substances; Z98.890 Other specified postprocedural states; Z79.899 Other long term (current) drug therapy; Z79.82 Long term (current) use of aspirin; Z96.651 Presence of right artificial knee joint
CPT/HCPCS: 27447; 36415; 64447; 73560; 80053; 85027; 87641; 97110; 97116; 97162; 97165; 97535; A9270; C1776; J0171; J0690; J0697; J1100; J1885; J2250; J2270; J2405; J2795; J3010; J3370; J3490; J7120; 01402; 64450; J2704

== ENCOUNTER 2024-02-05 20:31 | Emergency (ER) | payer MEDICARE, OTHER ==
[2024-02-05 21:46] LABS: BASOPHILS ABSOLUTE AUTO 0.1 K/mm3 (0.0-0.2); BASOPHILS PERCENT AUTO 0.5 % (0.0-1.0); EOSINOPHILS ABSOLUTE AUTO 0.1 K/mm3 (0.0-0.4); EOSINOPHILS PERCENT AUTO 1.1 % (0.0-6.0); HEMOGLOBIN 11.2 gm/dl (12.0-16.0); IMMATURE GRAN ABSOLUTE AUTO 0.06 K/mm3 (0.00-0.05); IMMATURE GRAN PERCENT AUTO 0.6 % (0.0-0.4); LYMPHOCYTES ABSOLUTE AUTO 1.8 K/mm3 (1.0-4.8); LYMPHOCYTES PERCENT AUTO 17.7 % (24.0-44.0); MEAN CORPUSCULAR HEMOGLOBIN 29.3 pg (28.0-32.0); MEAN CORPUSCULAR VOLUME 91.6 fl (83.0-99.0); MONOCYTES ABSOLUTE AUTO 0.7 K/mm3 (0.0-0.8); MONOCYTES PERCENT AUTO 7.1 % (0.0-8.0); NEUTROPHILS ABSOLUTE AUTO 7.2 K/mm3 (1.8-7.7); PLATELET COUNT,PLT 367 K/mm3 (150-400); RED BLOOD CELL COUNT 3.82 M/mm3 (4.10-5.30); WHITE BLOOD CELL COUNT,WBC 9.87 K/mm3 (3.9-11.3)
[2024-02-05 22:06] LABS: ALBUMIN 3.4 g/dl (3.4-5.0); ANION GAP 15.9 (5-15); BILIRUBIN TOTAL 0.3 mg/dL (0.2-1.0); BUN/CREATININE RATIO 11.8 (14-18); C-REACTIVE PROTEIN 0.26 mg/dL (<0.30); CALCIUM 8.7 mg/dL (8.5-10.1); CREATININE 1.7 mg/dL (0.55-1.02); EST CRCL DRUG DOSING (CG) 28.96 mL/min; MAGNESIUM 1.9 mg/dL (1.8-2.4); POTASSIUM,K 3.9 mEq/L (3.5-5.1); PROTEIN TOTAL,TP 6.9 g/dl (6.4-8.2); TSH 2.75 uIU/mL (0.358-3.74)
[2024-02-05 23:19] VITALS: BP 124/67; PULSE 82
== END 2024-02-05 23:10 | disposition home or self-care (01) ==
LOC: JD.ED 20:31
DX: E86.0 Dehydration (principal); I10 Essential (primary) hypertension; E78.00 Pure hypercholesterolemia, unspecified; K21.9 Gastro-esophageal reflux disease without esophagitis; E03.9 Hypothyroidism, unspecified; Z79.899 Other long term (current) drug therapy; Z79.01 Long term (current) use of anticoagulants; Z88.8 Allergy status to other drugs, medicaments and biological substances
CPT/HCPCS: 36415; 71045; 71045-26; 80053; 83735; 83880; 84443; 85025; 86140; 93005; 99285

== ENCOUNTER 2025-05-14 11:23 | Emergency (ER) | payer MEDICARE, OTHER ==
[2025-05-14] MEDS: Ondansetron 4 MG/2 ML SDV IVPUSH ONE (12:23)
[2025-05-14 12:44] LABS: BASOPHILS ABSOLUTE AUTO 0.0 K/mm3 (0.0-0.2); BASOPHILS PERCENT AUTO 0.3 % (0.0-1.0); EOSINOPHILS ABSOLUTE AUTO 0.0 K/mm3 (0.0-0.4); EOSINOPHILS PERCENT AUTO 0.2 % (0.0-6.0); IMMATURE GRAN ABSOLUTE AUTO 0.06 K/mm3 (0.00-0.05); IMMATURE GRAN PERCENT AUTO 0.5 % (0.0-0.4); LYMPHOCYTES ABSOLUTE AUTO 1.1 K/mm3 (1.0-4.8); LYMPHOCYTES PERCENT AUTO 8.4 % (24.0-44.0); MEAN PLATELET VOLUME 9.6 fl (9.4-12.3); MONOCYTES ABSOLUTE AUTO 0.8 K/mm3 (0.0-0.8); MONOCYTES PERCENT AUTO 6.0 % (0.0-8.0); NEUTROPHILS ABSOLUTE AUTO 11.0 K/mm3 (1.8-7.7); NEUTROPHILS PERCENT AUTO 84.6 % (41.0-71.0); NRBC ABSOLUTE 0.00 (0.00-0.02); NRBC PERCENT 0.0 % (0.0-0.2); PLATELET COUNT,PLT 365 K/mm3 (150-400); RED BLOOD CELL COUNT 3.95 M/mm3 (4.10-5.30); WHITE BLOOD CELL COUNT,WBC 12.93 K/mm3 (3.9-11.3)
[2025-05-14 13:12] LABS: A/G RATIO 1.1 (1-2); ALANINE AMINOTRANSFERASE,ALT 44.0 U/L (14-59); ASPARTATE AMNIOTRANSFERASE,AST 36.0 U/L (15-37); BILIRUBIN TOTAL 0.5 mg/dL (0.2-1.0); BLOOD UREA NITROGEN,BUN 31.0 mg/dL (7-18); CARBON DIOXIDE,CO2 26.0 mEq/L (21-32); CHLORIDE,CL 106.0 mEq/L (98-107); CREATINE KINASE,CK 40.0 U/L (26-192); CREATININE 1.0 mg/dL (0.55-1.02); EST CRCL DRUG DOSING (CG) 45.09 mL/min; ESTIMATED GFR 58.0 mL/min (>60); GLUCOSE RANDOM 105.0 mg/dL (70-99); POTASSIUM,K 4.2 mEq/L (3.5-5.1); PROTEIN TOTAL,TP 6.3 g/dl (6.4-8.2); SODIUM,NA 140.0 mEq/L (136-145)
[2025-05-14] MEDS: Iopamidol 612 MG/ML 100 ML Bottle IVPUSH ONE (14:52)
[2025-05-14] MEDS: Sodium Chloride 0.9% 10 ML Syringe FLUSH ONE (14:52)
[2025-05-14] MEDS ORDERED: Naloxone 0.4 MG/ML SDV IVPUSH PRN (15:48)
[2025-05-14] MEDS ORDERED: fentaNYL 100 MCG/2 ML SDV IVPUSH STA (15:48)
[2025-05-14] MEDS ORDERED: LORazepam 2 MG/ML SDV IVPUSH PRN (15:48)
[2025-05-14 17:48] VITALS: BP 116/58; PULSE 81
== END 2025-05-14 17:20 | disposition home or self-care (01) ==
LOC: JD.ED 11:23
DX: K44.9 Diaphragmatic hernia without obstruction or gangrene (principal); D50.0 Iron deficiency anemia secondary to blood loss (chronic); K57.30 Diverticulosis of large intestine without perforation or abscess without bleeding; E78.00 Pure hypercholesterolemia, unspecified; I10 Essential (primary) hypertension; E03.9 Hypothyroidism, unspecified; K92.1 Melena; E83.42 Hypomagnesemia; Z79.890 Hormone replacement therapy; Z88.8 Allergy status to other drugs, medicaments and biological substances; Z79.899 Other long term (current) drug therapy
CPT/HCPCS: 36415; 74177; 80053; 82550; 83690; 83735; 85025; 86850; 86900; 86901; 96365; 99284; J3475; J7030; Q9967